=== PATIENT | male | born 1960 | race Caucasian/White ===

== ENCOUNTER 2017-06-21 20:52 | Emergency (ER) | payer MEDICARE, MEDICAID, SELFPAY | END 2017-06-21 21:49 | disposition home or self-care (01) | PROVIDERS: Emergency Provider Emergency Medicine; Visit Provider Emergency Medicine | DX: R07.9 Chest pain, unspecified (principal); F10.120 Alcohol abuse with intoxication, uncomplicated; Y90.6 Blood alcohol level of 120-199 mg/100 ml; F17.210 Nicotine dependence, cigarettes, uncomplicated; Z90.49 Acquired absence of other specified parts of digestive tract; Z79.891 Long term (current) use of opiate analgesic; Z79.899 Other long term (current) drug therapy | CPT/HCPCS: 71010; 80053; 80185; 82550; 82553; 84484; 85025; 93005; 93041; 99283 ==

== ENCOUNTER 2024-12-27 19:29 | Emergency (ER) | payer MEDICARE, MEDICAID, SELFPAY ==
--- OUTSIDE RECORDS SUMMARY | 2024-11-03 09:45 | XMS_ITS ---
Author Organization [facility] [place] Address [address] [facility] [place] [address] Care Team Providers Care Merchandise Flow Team Leader Name Role Phone ZA CORDOBA Primary Care Provider [phone] Julieta LLAMAS, Za Unavailable Unavailable Nicole Jimenez Unavailable [phone] REASON FOR VISIT 1 month f/u Encounters Encounter Location Date Provider Diagnosis [facility] [address] [place] [address] 11/03/2024 Nicole Jimenez Plan Of Treatment No Information Progress Notes * Francisco JONES RDOB:[birth year] (64 yo M)Acc No.[id number]:11/03/2024 Progress Notes Patient: Ashkan NICOLASshelia Montelongo Appointment Provider: Jillian Jimenez APRN, CNP :1960 A ge:64 Y S ex:Male Date:11/03/2024 Address:[address], [place], [place] Pcp:ZA CORDOBA Subjective: * Chief Complaints: * 1 . 1 month f/u. * Medical History: Objective: * Vitals: Assessment: Plan: * Treatment: * * Electronic signature of Damon Schumacher APRN on 12/27/2024 at 07:44 PM EDT Sign off status: Pending * Appointment Provider: Jillian Jimenez APRN, CNP Date: 0 11/03/2024 Generated for Printing/Faxing/eTransmitting on: 0 12/27/2024 07:44 PM EDT
--- OUTSIDE RECORDS SUMMARY | 2024-11-10 07:30 | XMS_ITS ---
Author Organization [facility] [place] Address [address] [place] [address] Care Team Providers Care Real Estate Portfolio Manager Name Role Phone ZA CORDOBA Primary Care Provider Julieta LLAMAS, Za Unavailable Unavailable Gertrudis Mccoy [phone] REASON FOR VISIT medicare wellness Encounters Encounter Location Date Provider Diagnosis [facility] [place] [address] [facility] [address] [place] [address] 11/10/2024 Gertrudis Mccoy Plan Of Treatment No Information Progress Notes * Francisco JONES RDOB:[birth year] (64 yo M)Acc No.[id number]:11/10/2024 Progress Note Patient: Ashkan NICOLASshelia Montelongo Provider: Jillian Mccoy :1960 A ge:64 Y S ex:Male Date:11/10/2024 Address:[address], [place], [place] Pcp:ZA CORDOBA Subjective: * Chief Complaints: * 1 . Medicare wellness. * Medical History: Objective: * Vitals: Assessment: Plan: * Treatment: * * Electronic signature of Everette Mccoy PAC on 12/27/2024 at 07:45 PM EDT Sign off status: Pending * Provider: Jillian Mccoy Date: 0 11/10/2024 Generated for Glenn curiel/Karlee/eTgilbertosmitting on: 0 12/27/2024 07:45 PM EDT
[2024-12-27] VITALS (7 sets, daily range): BP systolic 97–123; BP diastolic 58–93; PULSE 60–69; RESP 12–20; TEMP 36.3–36.4; O2SAT 96–100; BMI 24.3
--- NOTE | 2024-12-27 19:30 | ECG_ITS ---
APPROVED REPORT Exam: Resting ECG HR:65 bpm ECG Measurements Heart Rate 65 AXES NC 167 P 69 QRSd 107 QRS -9 QT 442 T 52 QTc 453 Conclusion SINUS RHYTHM NONSPECIFIC ST & T-WAVE ABNORMALITY BORDERLINE ECG INTERPRETATION BASED ON A DEFAULT AGE OF 39 YEARS UNCONFIRMED REPORT Electronically signed by : CHECO FRANCIS, 12/28/2024 06:14:10
--- NOTE | 2024-12-27 19:33 | HMH.EDGENADL ---
Discharge Plan Disposition Patient Disposition: Home, Self-Care Condition: Good Referrals Follow up/Referrals: Marlon Rendon [Primary Care Provider, Medical] - See instructions Activity Restrictions/Add. Instructions Additional Instructions/Restrictions: You were evaluated in the emergency department today for chest pain. Your second troponin was pending but since you are elected to leave before it resulted, please note that ypu should follow-up very closely with primary care as well as with cardiology given your chest pain. Return to the emergency department for new or worsening symptoms. Your lung mass was noted on CT scan. I understand that you follow at [facility] for this, so please keep close follow-up with them. Clinical Impressions Clinical Impression: Hypokalemia, Paresthesia Chest pain Qualifiers: Chest pain type: unspecified Qualified Code(s): R07.9 - Chest pain, unspecified Alcohol intoxication Qualifiers: Complication of substance-induced condition: uncomplicated Qualified Code(s): F10.920 - Alcohol use, unspecified with intoxication, uncomplicated Instructions Patient Instructions: DI for Atypical Chest Pain Print Language Print Language: Lao Discharge ED Provider: Edwige Leyva General Adult HPI <TWAN Hernandez - Last Filed: 12/27/24 22:14> General Chief complaint: Chest Pain Stated complaint: chest pain, numb arm Time Seen by Provider: 12/27/24 19:33 History of Present Illness HPI narrative: Patient presents for evaluation of chest pain. Patient reports that approximately an hour prior to presentation he had acute onset of bilateral upper extremity numbness that then spread to chest pain. Patient reports he has a history of cardiovascular disease and took a nitroglycerin without relief. Patient is somewhat evasive about the circumstances around today. He reports that [place] in [place] chair outside of his vehicle. His home address is in [facility] and we have no record of the patient previously. Patient denies drug use and reports that he drinks wine not very often . Patient denies shortness of breath fever chills hemoptysis hematochezia melena nausea vomiting or diarrhea. He reports no focal neurologic deficits and still retains full range of motion of his extremities. There are no aggravating or relieving factors. Related Data Allergies Allergy/AdvReac Type Severity Reaction Status Date / Time No Known Drug Allergies Allergy Unknown Other Verified 12/27/24 20:26 PFS <TWAN Hernandez - Last Filed: 12/27/24 22:14> [facility] Disclaimer: The information contained in this section may have been updated after the patient was seen, as this information can be updated by other users. Social History (Updated 12/27/24 @ 22:14 by TWAN Hernandez) Smoking Status: Current every day smoker alcohol intake: current current occupational status: unemployed Travel in the last 8 weeks?: None Have you lived/traveled outside US in past 30 days?: No Contact w/someone who lives/traveled outside US past 30 days?: No Exposure to someone with infectious disease in past 14 days?: No Do you have a fever (greater than 100.4 F or 38 C)?: No Have you tested positive for COVID-19?: No Exposed to someone with COVID-19 in past 14 days?: No Do you have a sore throat?: No Do you have a cough?: No Do you have any weakness?: No Do you have any diarrhea?: No Are you experiencing any unusual bleeding?: No Do you have any muscle aches/pain?: No Do you have any abdominal pain?: No Are you experiencing loss of taste or smell?: No <TWAN Hernandez - Last Filed: 12/27/24 22:14> ROS Obtained: Yes Systems reviewed as appropriate & no additional complaints except as documented Physical Exam <TWAN Hernandez - Last Filed: 12/27/24 22:14> General General appearance: alert and in no apparent distress Respiratory Respiratory exam: Present normal lung sounds bilaterally Cardiovascular Cardiovascular exam: Present regular rate Neurological Exam Neurological exam: Present alert and oriented X3 Medical Decision Making <TWAN Hernandez - Last Filed: 12/27/24 22:14> Medical Records Medical records reviewed: Yes I reviewed the patient's medical records. Screening: Per USPSTF and CDC recommendations, given the prevalence of disease in our region, it is our hospital?s policy to screen for HIV and viral Hepatitis for all patients aged 18 and over and those with ongoing risk factors. Jonathan Inquiry Pt receiving controlled substance: No Vital Signs: 12/27/24 19:31 12/27/24 20:01 12/27/24 20:21 Temperature 97.3 F L Temperature Source Oral Pulse Rate 60 68 Pulse Rate [Right Brachial] 65 Respiratory Rate 20 15 Blood Pressure 107/65 L Blood Pressure [Right Arm] 97/58 L Blood Pressure Mean Blood Pressure Mean [Right Arm] 71 Blood Pressure Source [Right Arm] Automatic Cuff Blood Pressure Position Blood Pressure Position [Right Arm] Supine 02 Sat by Pulse Oximetry 96 100 Oxygen Delivery Method Room Air 12/27/24 21:02 12/27/24 22:00 12/27/24 23:31 Temperature 97.6 F Temperature Source Pulse Rate 61 64 Pulse Rate [Right Brachial] Respiratory Rate 12 15 Blood Pressure 119/62 121/80 123/93 H Blood Pressure [Right Arm] Blood Pressure Mean 96 101 Blood Pressure Mean [Right Arm] Blood Pressure Source [Right Arm] Blood Pressure Position Blood Pressure Position [Right Arm] 02 Sat by Pulse Oximetry 97 98 Oxygen Delivery Method 12/27/24 23:48 Temperature 97.6 F Temperature Source Oral Pulse Rate 69 Pulse Rate [Right Brachial] Respiratory Rate 16 Blood Pressure 123/93 H Blood Pressure [Right Arm] Blood Pressure Mean Blood Pressure Mean [Right Arm] Blood Pressure Source [Right Arm] Blood Pressure Position Sitting Blood Pressure Position [Right Arm] 02 Sat by Pulse Oximetry Oxygen Delivery Method Room Air Lab Data Lab results reviewed: Yes I reviewed the patient's lab results. Lab Results 12/27/24 19:37: WBC 11.3 H, RBC 4.13 L, Hgb 11.3 L, Hct 33.9 L, MCV 82.1, MCH 27.4, MCHC 33.3, RDW 14.5, Plt Count 296, MPV 10.1, Neut % (Auto) 63.5, Lymph % (Auto) 21.6, [place] % (Auto) 8.3, Eos % (Auto) 5.2, Baso % (Auto) 1.0, Neut # (Auto) 7.2, Lymph # (Auto) 2.5, [place] # (Auto) 0.9, Eos # (Auto) 0.6 H, Baso # (Auto) 0.1, ESR 20, PT 10.8, INR 0.97, VBG pH 7.43 H, VBG pCO2 32.4 L, VBG pO2 123.8 H, VBG HCO3 20.9 L, VBG Total CO2 21.9 L, VBG O2 Saturation 98.0 H, VBG Base Excess -3.4 L, VBG Lactic Acid 3.3 H, Sodium 136, Potassium 3.0 L, Chloride 101, Carbon Dioxide 22, Anion Gap 16.0 H, BUN 16, Creatinine 1.40 H, Estimated Creat Clear 64, Estimated GFR 51 L, Est GFR ( Amer) 62, Glucose 93, Calcium 9.0, Magnesium 2.0, Total Bilirubin 0.5, AST 33, ALT 17, Alkaline Phosphatase 107, Troponin I < 0.01, C-Reactive Protein 2.8, Total Protein 6.8, Albumin 4.0, Globulin 2.8, Albumin/Globulin Ratio 1.4, Lipase 109, Procalcitonin 0.063, Plasma/Serum Alcohol 149 H, HCV Ab MIKE w/Rflx PCR Qn Negative, HIV Ag/Ab Combo Qual Negative 12/27/24 21:05: Urine Color Yellow, Urine Appearance Sl cloudy, Urine pH 6.0, Ur Specific [place] <= 1.005, Urine Protein Negative, Urine Glucose (UA) Negative, Urine Ketones Negative, Urine Blood Negative, Urine Nitrate Negative, Urine Bilirubin Negative, Urine Urobilinogen 0.2, Ur Leukocyte Esterase Negative, Urine RBC 3-5, Urine WBC 3-5, Ur Squamous Epith Cells 5-10, Urine Bacteria 1+, Urine Mucus 1+, Urine Opiates Screen Negative, Urine Methadone Screen Negative, Ur Barbituates Screen Negative, Ur Phencyclidine Scrn Negative, Ur Amphetamines Screen Negative, U Benzodiazepines Scrn Negative, Urine Cocaine Screen Negative, U Marijuana (THC) Screen Negative 12/27/24 22:45: Troponin I < 0.01 12/27/24 19:37 12/27/24 19:37 Orders (Tests/Meds): ED MEDICATIONS Discontinued Medications Generic Name Dose Route Start Last Admin Trade Name Freq PRN Reason Stop Dose Admin Acetaminophen 1,000 mg 12/27/24 19:34 12/27/24 19:46 Acetaminophen 500mg Tab PO 12/27/24 19:35 1,000 mg ONCE ONE Administration Sodium Chloride 1,000 mls @ 999 mls/hr 12/27/24 19:34 12/27/24 19:45 Sod Chlor 0.9% 1000ml Bag IV 12/27/24 20:34 999 mls/hr .Q1H1M ONE Administration Iopamidol 70 ml 12/27/24 20:36 12/27/24 20:37 Iopamidol-370 (76%);100ml Bottle IV 12/27/24 20:37 70 ml ONCE ONE Administration Ondansetron HCl 4 mg 12/27/24 19:34 12/27/24 19:45 Ondansetron 4mg/2ml Vial IV 12/27/24 19:35 4 mg ONCE ONE Administration Potassium Chloride 60 meq 12/27/24 20:27 12/27/24 20:37 Potassium Chloride 20meq Tab PO 12/27/24 20:28 60 meq ONCE ONE Administration Sodium Chloride 50 ml 12/27/24 20:36 12/27/24 20:37 0.9 % Sodium Chloride 50 Ml Vial IV 12/27/24 20:37 50 ml ONCE ONE Administration Sodium Chloride 10 ml 12/27/24 20:36 12/27/24 20:37 Sodium Chloride 0.9% 10ml Syr (Rad Only) IV 12/27/24 20:37 10 ml ONCE ONE Administration ORDERS Category Date Time Status CTA Chest [CT angio chest PE protocol] Stat Cat Scan 12/27/24 20:03 Completed Blood alcohol [Ethyl Alcohol] Stat Lab 12/27/24 19:37 Completed CBC w/Auto Diff [Complete Blood Count Auto Diff] Stat Lab 12/27/24 19:37 Completed CMP [Comprehensive Metabolic Panel] Stat Lab 12/27/24 19:37 Completed CRP [C-Reactive Protein] Stat Lab 12/27/24 19:37 Completed ESR [Erythrocyte Sedimentation Rate] Stat Lab 12/27/24 19:37 Completed HIV Combo Routine Lab 12/27/24 19:37 Completed Hepatitis C Ab Qual. W/ RFX Routine Lab 12/27/24 19:37 Completed INR [Prothrombin Time INR] Stat Lab 12/27/24 19:37 Completed Lipase Stat Lab 12/27/24 19:37 Completed Magnesium Stat Lab 12/27/24 19:37 Completed Procalcitonin Stat Lab 12/27/24 19:37 Completed Trop I [Troponin I] Stat Lab 12/27/24 19:37 Completed Troponin I Q3H Lab 12/27/24 22:45 Completed Troponin I Q3H Lab 12/28/24 01:45 Ordered UA [Urinalysis and Microscopic] Stat Lab 12/27/24 21:05 Completed UDS [Drug Screen,Urine] Stat Lab 12/27/24 21:05 Completed VBG [Venous Blood Gas] Stat RT 12/27/24 19:37 Completed HEART Score History (anamnesis): Slightly suspicious ECG: Non-specific disturbance Age: 45-65 years Risk factors: Atherosclerosis history Troponin: </= normal limit HEART Score: 4 Medical Decision Narrative: In summary patient is a 64-year-old male who presents to the emergency department for evaluation of chest pain and paresthesias. Patient is initially hypotensive with a blood pressure 97/58 however he did take a nitro sublingually, pulse of 65 with sinus rhythm on the bedside monitor breathing 20 times a minute satting at 98% on room air upon arrival, afebrile at 97.3. Physical exam is remarkable for a much older than stated age appearing 64-year-old male who does not appear to be in acute distress. Pupils equal round reactive to light however he has significant conjunctival injection. Breath sounds clear and equal bilaterally to the bases with adventitious sounds. There is no reproducible chest pain on palpation. Breath sounds clear no bilaterally to the bases that adventitious sounds. Cardiovascular S1-S2 regular rate and rhythm without murmurs gallops rubs or thrills. Abdomen soft nontender no rebound no guarding no rigidity. Bowel sounds normal active. [place] Coma Score 15. Cranial nerves II through XII intact respiratory exam. Patient has full range of motion in all 4 extremities with no focal neurologic deficits.. Differential diagnosis includes ACS versus dissection versus PE versus intoxication versus electrolyte abnormality versus pneumonia etc. Initial workup will be conducted with hematologic labs twelve-lead EKG CT dissection protocol. Initial interventions include crystalloid bolus Toradol and Zofran. Initial workup reviewed by me and his hematologic labs significant for white count of 11.3 hemoglobin hematocrit 11.3 and 33.9 respectively with no neutrophilic shift, ESR is 20, VBG shows pH 7.43 pCO2 32.4 VBG lactic acid of 3.3, potassium critically low at 3 gap is 16 creatinine 1.4 GFR is 51 initial troponin is less than 0.01 lipase 109 procalcitonin 0.063 urinalysis shows 5-10 epithelial cells and 1+ bacteria the patient has no dysuria symptoms so we will assume contamination. Serum alcohol was 149 drug screen was negative for all agents. Have ordered potassium repletion. Given the close onset of his symptoms we will await second troponin before disposition. Care handed off to Dr. Leyva at 2200 hrs. <Edwige Leyva, DO - Last Filed: 12/27/24 23:50> Vital Signs: 12/27/24 19:31 12/27/24 20:01 12/27/24 20:21 Temperature 97.3 F L Temperature Source Oral Pulse Rate 60 68 Pulse Rate [Right Brachial] 65 Respiratory Rate 20 15 Blood Pressure 107/65 L Blood Pressure [Right Arm] 97/58 L Blood Pressure Mean Blood Pressure Mean [Right Arm] 71 Blood Pressure Source [Right Arm] Automatic Cuff Blood Pressure Position Blood Pressure Position [Right Arm] Supine 02 Sat by Pulse Oximetry 96 100 Oxygen Delivery Method Room Air 12/27/24 21:02 12/27/24 22:00 12/27/24 23:31 Temperature 97.6 F Temperature Source Pulse Rate 61 64 Pulse Rate [Right Brachial] Respiratory Rate 12 15 Blood Pressure 119/62 121/80 123/93 H Blood Pressure [Right Arm] Blood Pressure Mean 96 101 Blood Pressure Mean [Right Arm] Blood Pressure Source [Right Arm] Blood Pressure Position Blood Pressure Position [Right Arm] 02 Sat by Pulse Oximetry 97 98 Oxygen Delivery Method 12/27/24 23:48 Temperature 97.6 F Temperature Source Oral Pulse Rate 69 Pulse Rate [Right Brachial] Respiratory Rate 16 Blood Pressure 123/93 H Blood Pressure [Right Arm] Blood Pressure Mean Blood Pressure Mean [Right Arm] Blood Pressure Source [Right Arm] Blood Pressure Position Sitting Blood Pressure Position [Right Arm] 02 Sat by Pulse Oximetry Oxygen Delivery Method Room Air Lab Data Lab Results 12/27/24 19:37: WBC 11.3 H, RBC 4.13 L, Hgb 11.3 L, Hct 33.9 L, MCV 82.1, MCH 27.4, MCHC 33.3, RDW 14.5, Plt Count 296, MPV 10.1, Neut % (Auto) 63.5, Lymph % (Auto) 21.6, [place] % (Auto) 8.3, Eos % (Auto) 5.2, Baso % (Auto) 1.0, Neut # (Auto) 7.2, Lymph # (Auto) 2.5, [place] # (Auto) 0.9, Eos # (Auto) 0.6 H, Baso # (Auto) 0.1, ESR 20, PT 10.8, INR 0.97, VBG pH 7.43 H, VBG pCO2 32.4 L, VBG pO2 123.8 H, VBG HCO3 20.9 L, VBG Total CO2 21.9 L, VBG O2 Saturation 98.0 H, VBG Base Excess -3.4 L, VBG Lactic Acid 3.3 H, Sodium 136, Potassium 3.0 L, Chloride 101, Carbon Dioxide 22, Anion Gap 16.0 H, BUN 16, Creatinine 1.40 H, Estimated Creat Clear 64, Estimated GFR 51 L, Est GFR ( Amer) 62, Glucose 93, Calcium 9.0, Magnesium 2.0, Total Bilirubin 0.5, AST 33, ALT 17, Alkaline Phosphatase 107, Troponin I < 0.01, C-Reactive Protein 2.8, Total Protein 6.8, Albumin 4.0, Globulin 2.8, Albumin/Globulin Ratio 1.4, Lipase 109, Procalcitonin 0.063, Plasma/Serum Alcohol 149 H, HCV Ab MIEK w/Rflx PCR Qn Negative, HIV Ag/Ab Combo Qual Negative 12/27/24 21:05: Urine Color Yellow, Urine Appearance Sl cloudy, Urine pH 6.0, Ur Specific [place] <= 1.005, Urine Protein Negative, Urine Glucose (UA) Negative, Urine Ketones Negative, Urine Blood Negative, Urine Nitrate Negative, Urine Bilirubin Negative, Urine Urobilinogen 0.2, Ur Leukocyte Esterase Negative, Urine RBC 3-5, Urine WBC 3-5, Ur Squamous Epith Cells 5-10, Urine Bacteria 1+, Urine Mucus 1+, Urine Opiates Screen Negative, Urine Methadone Screen Negative, Ur Barbituates Screen Negative, Ur Phencyclidine Scrn Negative, Ur Amphetamines Screen Negative, U Benzodiazepines Scrn Negative, Urine Cocaine Screen Negative, U Marijuana (THC) Screen Negative 12/27/24 22:45: Troponin I < 0.01 Orders (Tests/Meds): ED MEDICATIONS Discontinued Medications Generic Name Dose Route Start Last Admin Trade Name Mansoorq PRN Reason Stop Dose Admin Acetaminophen 1,000 mg 12/27/24 19:34 12/27/24 19:46 Acetaminophen 500mg Tab PO 12/27/24 19:35 1,000 mg ONCE ONE Administration Sodium Chloride 1,000 mls @ 999 mls/hr 12/27/24 19:34 12/27/24 19:45 Sod Chlor 0.9% 1000ml Bag IV 12/27/24 20:34 999 mls/hr .Q1H1M ONE Administration Iopamidol 70 ml 12/27/24 20:36 12/27/24 20:37 Iopamidol-370 (76%);100ml Bottle IV 12/27/24 20:37 70 ml ONCE ONE Administration Ondansetron HCl 4 mg 12/27/24 19:34 12/27/24 19:45 Ondansetron 4mg/2ml Vial IV 12/27/24 19:35 4 mg ONCE ONE Administration Potassium Chloride 60 meq 12/27/24 20:27 12/27/24 20:37 Potassium Chloride 20meq Tab PO 12/27/24 20:28 60 meq ONCE ONE Administration Sodium Chloride 50 ml 12/27/24 20:36 12/27/24 20:37 0.9 % Sodium Chloride 50 Ml Vial IV 12/27/24 20:37 50 ml ONCE ONE Administration Sodium Chloride 10 ml 12/27/24 20:36 12/27/24 20:37 Sodium Chloride 0.9% 10ml Syr (Rad Only) IV 12/27/24 20:37 10 ml ONCE ONE Administration ORDERS Category Date Time Status CTA Chest [CT angio chest PE protocol] Stat Cat Scan 12/27/24 20:03 Completed Blood alcohol [Ethyl Alcohol] Stat Lab 12/27/24 19:37 Completed CBC w/Auto Diff [Complete Blood Count Auto Diff] Stat Lab 12/27/24 19:37 Completed CMP [Comprehensive Metabolic Panel] Stat Lab 12/27/24 19:37 Completed CRP [C-Reactive Protein] Stat Lab 12/27/24 19:37 Completed ESR [Erythrocyte Sedimentation Rate] Stat Lab 12/27/24 19:37 Completed HIV Combo Routine Lab 12/27/24 19:37 Completed Hepatitis C Ab Qual. W/ RFX Routine Lab 12/27/24 19:37 Completed INR [Prothrombin Time INR] Stat Lab 12/27/24 19:37 Completed Lipase Stat Lab 12/27/24 19:37 Completed Magnesium Stat Lab 12/27/24 19:37 Completed Procalcitonin Stat Lab 12/27/24 19:37 Completed Trop I [Troponin I] Stat Lab 12/27/24 19:37 Completed Troponin I Q3H Lab 12/27/24 22:45 Completed Troponin I Q3H Lab 12/28/24 01:45 Ordered UA [Urinalysis and Microscopic] Stat Lab 12/27/24 21:05 Completed UDS [Drug Screen,Urine] Stat Lab 12/27/24 21:05 Completed VBG [Venous Blood Gas] Stat RT 12/27/24 19:37 Completed ECG Data Tracing #1: I reviewed this ECG and interpreted as documented below: Normal sinus rhythm with a ventricular rate of [address]/T wave changes without acute STEMI. Normal intervals ECG initial impression date: 12/27/24 ECG initial impression time: 19:32 HEART Score HEART Score: 4 Medical Decision Narrative: In summary patient is a 64-year-old male who presents to the emergency department for evaluation of chest pain and paresthesias. Patient is initially hypotensive with a blood pressure 97/58 however he did take a nitro sublingually, pulse of 65 with sinus rhythm on the bedside monitor breathing 20 times a minute satting at 98% on room air upon arrival, afebrile at 97.3. Physical exam is remarkable for a much older than stated age appearing 64-year-old male who does not appear to be in acute distress. Pupils equal round reactive to light however he has significant conjunctival injection. Breath sounds clear and equal bilaterally to the bases with adventitious sounds. There is no reproducible chest pain on palpation. Breath sounds clear no bilaterally to the bases that adventitious sounds. Cardiovascular S1-S2 regular rate and rhythm without murmurs gallops rubs or thrills. Abdomen soft nontender no rebound no guarding no rigidity. Bowel sounds normal active. [place] Coma Score 15. Cranial nerves II through XII intact respiratory exam. Patient has full range of motion in all 4 extremities with no focal neurologic deficits.. Differential diagnosis includes ACS versus dissection versus PE versus intoxication versus electrolyte abnormality versus pneumonia etc. Initial workup will be conducted with hematologic labs twelve-lead EKG CT dissection protocol. Initial interventions include crystalloid bolus Toradol and Zofran. Initial workup reviewed by me and his hematologic labs significant for white count of 11.3 hemoglobin hematocrit 11.3 and 33.9 respectively with no neutrophilic shift, ESR is 20, VBG shows pH 7.43 pCO2 32.4 VBG lactic acid of 3.3, potassium critically low at 3 gap is 16 creatinine 1.4 GFR is 51 initial troponin is less than 0.01 lipase 109 procalcitonin 0.063 urinalysis shows 5-10 epithelial cells and 1+ bacteria the patient has no dysuria symptoms so we will assume contamination. Serum alcohol was 149 drug screen was negative for all agents. Have ordered potassium repletion. Given the close onset of his symptoms we will await second troponin before disposition. Care handed off to Dr. Leyva at 2200 hrs. DO Gordon: I was consulted by the [place], and we discussed the complexity of the problems being addressed. I approved the treatment and management plan for this patient's care in the emergency department, thus performing a substantive portion of the medical decision making. Second opponent resulted and is also negative. Patient was discharged home with instructions for close follow-up with PCP and strict return precautions Edwige Leyva DO Critical Care <TWAN Hernandez - Last Filed: 12/27/24 22:14> Critical Care Time Critical Care Time: Yes Attestation: On 12/27/24, the high probability of a clinically significant, sudden or life threatening deterioration of the following system(s) required my full and direct attention, intervention and personal management. The time I documented below is in addition to time spent performing reported procedures but includes the following listed in this critical care notation. Total Time Total Critical Care Time: 30
--- NOTE | 2024-12-27 19:34 | PC.NURSE ---
Report given to Rehan RN Pt resting quietly in bed Skin pink warm and dry Resp full and easy Speech clear and appropriate Port noted in right chest. Pain 8 on 1-10 scale Pt in SR per continuous heart monitor
--- OUTSIDE RECORDS SUMMARY | 2024-12-27 19:44 | XMS_ITS | Referral Summary ---
Author Organization [employer] Address [address] [place] [address] Care Team Providers Care School Speech Therapist Name Role Phone Marlon Rendon MD Primary Care Provider [phone] Encounters Date Type Department Care Team Description 10/04/2024 Travel 10/04/2024 8:59 PM EDT - 10/04/2024 10:47 PM EDT Emergency [facility] Emergency Department [address] [place] [address] Vnice Bennett MD Atypical chest pain (Primary Dx) Discharge Disposition: Home or Self Care from Last 3 Months Allergies No known active allergies Medications No known medications Social History Tobacco Use Types Packs/Day Years Used Date Smoking Tobacco: Every Day Cigarettes Smokeless Tobacco: Never Tobacco Cessation:Ready to Q uit: Not Asked; Counseling Given: Not Answered Alcohol Use Standard Drinks/Week Comments Not Currently 0 (1 standard drink = 0.6 oz pur e alcohol) Interpersonal Safety Answer Date Record ed Family or friends hurt you Not on file 07/22 Family or friends insult you Not on file Family or friends threaten you Not on file 0 07/22/2023 Family or friends scream or curse at you Not on file 07/22/2023 Housing Stability Answer Date Recorded Living situation today Not on file Living situation problems Not on file 2023 Employment Answer Date Recorded Help finding and keeping a job Not on file 0 07/22/2023 Family and Community Support Answer Oliver e Recorded Help with Day to Day Activities Not on file 07/22/2023 Feeling Lonely or Isolated Not on file 07/22 Educational Attainment Answer Date Tono rded Speak language other than Maldivian at home Not on file 07/22/2023 Want help with school or training Not on file 07/22/2023 Depression Answer Date Recorded PHQ-2 Risk Not on file 07/22/2023 Disabilities Answer Date Recorded Difficulty concentrating Not on file 024 Difficulty doing errands alone Not on file 0 07/22/2023 Substance Use Answer Date Recorded Used prescription meds for non-medical reasons N ot on file 07/22/2023 Used illegal drugs past 12 months Not on file 07/22/2023 Sex and Gender Information Value Date Recorded Sex Assigned at Not on file Legal Sex Male 5:16 PM CDT Gender Identity Not on file Sexual Orientation Not on file Last Filed Vital Signs Vital Sign Reading Time Taken Comments Blood Pressure 95/56 10/04/2024 10:30 PM EDT Pulse 62 10/04/2024 10:30 PM EDT Temperature 36.1 C (97 F) 09/26/2022 2:17 PM EDT Respiratory Rate 42 10/04/2024 10:00 PM EDT Oxygen Saturation 93% 10/04/2024 10:30 PM EDT Inhaled Oxygen Concentration - - Weight 97.5 kg (215 lb) 09/26/2022 2:17 PM EDT Height 188 cm (6' 2 ) 09/26/2022 2:17 PM EDT Body Mass Index 27.6 09/26/2022 2:17 PM EDT Plan of Treatment Not on file Procedures Procedure Name Priority Date/Time Associated Diagnosis Comments XR CHEST 1 VIEW PORTABLE / BEDSIDE STAT 10/04/2024 9:16 PM EDT HIGH SENSITIVITY TROPONIN I STAT 10/04/2024 9:07 PM EDT PROBNP STAT 10/04/2024 9:07 PM EDT COMPREHENSIVE METABOLIC PANEL STAT 10/04/2024 9:07 PM EDT CBC W/ AUTO DIFF STAT 10/04/2024 9:07 PM EDT FS_MODEL_IP_ECG 12-LEAD STAT 10/04/2024 9:03 PM EDT from Last 3 Months Results * XR chest 1 view portable / bedside (10/04/2024 9:16 PM EDT) Anatomical Region Laterality Modality X-Ray 10/05/2024 8:29 AM EDT Impressions 10/05/2024 11:23 AM EDT Right upper lung ill-defined opacity, malignancy or pneumonia. Correlate clinically. Consider CT chest with contrast for further evaluation if not already performed. Images personally reviewed, interpreted and dictated by VARINDER Lerner. Narrative 10/05/2024 11:23 AM EDT CLINICAL INDICATION: Chest pain. Current smoker. EXAMINATION TECHNIQUE: XR CHEST 1 VIEW PORTABLE / BEDSIDE COMPARISON: None. FINDINGS: Right chest wall internal jugular approach Port-A-Cath tip in the SVC. Heart is normal in size. Right upper lung ill-defined opacity. Mild bibasilar atelectasis. No pneumothorax. No pleural effusion. No acute osseous or soft tissue abnormality. Procedure Note Jose J Castro MD - 10/05/2024 CLINICAL INDICATION: Chest pain. Current smoker. EXAMINATION TECHNIQUE: XR CHEST 1 VIEW PORTABLE / BEDSIDE COMPARISON: None. FINDINGS: Right chest wall internal jugular approach Port-A-Cath tip in the SVC. Heart is normal in size. Right upper lung ill-defined opacity. Mild bibasilar atelectasis. No pneumothorax. No pleural effusion. No acute osseous or soft tissue abnormality. IMPRESSION: Right upper lung ill-defined opacity, malignancy or pneumonia. Correlate clinically. Consider CT chest with contrast for further evaluation if not already performed. Images personally reviewed, interpreted and dictated by VARINDER Lerner. Vince Bennett MD IMG DIAGNOSTIC IMAGING ORDERABL ES Final Result * (ABNORMAL) CBC with Auto Diff (10/04/2024 9:07 PM EDT) WBC 14.6(H) 4.8 - 10.8 K/ L 10/04/2024 9:12 PM EDT [facility] RBC 4.79 3.80 - 5.20 M/ L 10/04/2024 9:12 PM EDT [facility] Hemoglobin 13.2 12.8 - 17.4 GM/DL 10/04/2024 9:12 PM EDT [facility] Hematocrit 39.5 39.0 - 51.0 % 10/04/2024 9:12 PM EDT [facility] MCV 83 81 - 101 fL 10/04/2024 9:12 PM EDT [facility] MCH 27.6 27.0 - 34.0 pg 10/04/2024 9:12 PM EDT [facility] MCHC 33.4 32.0 - 36.0 GM/DL 10/04/2024 9:12 PM EDT [facility] RDW 15.9(H) 11.5 - 14.5 % 10/04/2024 9:12 PM EDT [facility] Platelets 277 150 - 400 K/CU MM 10/04/2024 9:12 PM EDT [facility] MPV 10.7 9.4 - 12.4 fL 10/04/2024 9:12 PM EDT [facility] Nucleated Red Blood Cell 0.0 0 - 0.2 % 10/04/2024 9:12 PM EDT [facility] % Neutros 63 37 - 80 % 10/04/2024 9:12 PM EDT [facility] % Lymphs 26 10 - 50 % 10/04/2024 9:12 PM EDT [facility] % Monos 8 5 - 13 % 10/04/2024 9:12 PM EDT [facility] % Eos 2 0 - 7 % 10/04/2024 9:12 PM EDT [facility] % Baso 1 0 - 3 % 10/04/2024 9:12 PM EDT [facility] NRBC Absolute <0.01 0 - 0.012 K/ul 10/04/2024 9:12 PM EDT [facility] # Neutros 9.14(H) 2.00 - 6.90 K/ L 10/04/2024 9:12 PM EDT [facility] # Lymphs 3.82(H) 0.60 - 3.40 K/ L 10/04/2024 9:12 PM EDT [facility] # Monos 1.15(H) 0.00 - 0.90 K/ L 10/04/2024 9:12 PM EDT [facility] # Eos 0.28 0.00 - 0.70 K/ L 10/04/2024 9:12 PM EDT [facility] # Baso 0.10 0.00 - 0.20 K/ L 10/04/2024 9:12 PM EDT [facility] Immature Granulocytes-Re lative 0.50 % 10/04/2024 9:12 PM EDT [facility] # IG 0.07(H) 0.00 - 0.00 K/uL 10/04/2024 9:12 PM EDT [facility] Blood Venipuncture / Unknown 10/04/2024 9:07 PM EDT 10/04/2024 9:07 PM EDT Narrative [facility] - 10/04/2024 9:12 PM EDT When CBC w/ Auto Diff is ordered the lab will add a Manual Differential as a quality check at no additional charge if: Lymphocytes greater than seventy five percent with normal or increased WBC Monocytes greater than Fifteen percent Basophil greater than four percent Bands >10% or several immature myeloids are seen on scan Blast? Flag noted Atypical Lymph flag noted us Vince Bennett MD LAB BLOOD ORDERABLES Final Resu lt [facility] [address] [phone] * High Sensitivity Troponin I (10/04/2024 9:07 PM EDT) Troponin I High Sensitivity (pg/mL) 14.9 4 - 60.3 pg/mL 10/04/2024 9:56 PM EDT [facility] Comment: Troponin Result (pg/mL) *Interpretation 4-60.3 *Normal; less than 99th percentile of normal range >60.3 *Abnormal; greater than 99th percentile of normal range Biotin specimen concentration >300 ng/mL may lead to falsely depressed results for patient samples. Do not use this test for renal dysfunction patients (eGFR <60) unless it is confirmed that the patient is not taking Biotin. Blood Venipuncture / Unknown 10/04/2024 9:07 PM EDT 10/04/2024 9:07 PM EDT Vince Bennett MD LAB BLOOD ORDERABLES Final Resu lt Performing Organization Address [facility]/ZIP Co de Phone Number [facility] [address] [place] [address] * (ABNORMAL) PROBNP (10/04/2024 9:07 PM EDT) ProBNP (pg/mL) 1,185(H) 5 - 125 pg/mL 10/04/2024 9:56 PM EDT [facility] Blood Venipuncture / Unknown 10/04/2024 9:07 PM EDT 10/04/2024 9:07 PM EDT Vince Bennett MD LAB BLOOD ORDERABLES Final Resu lt Performing Organization Address [facility] Co de Phone Number [facility] [address] [place] [address] * (ABNORMAL) Comprehensive metabolic panel (10/04/2024 9:07 PM EDT) Sodium 132(L) 136 - 145 meq/L 10/04/2024 9:56 PM EDT [facility] Potassium 3.0(L) 3.5 - 5.1 meq/L 10/04/2024 9:56 PM EDT [facility] Chloride 99 98 - 107 meq/L 10/04/2024 9:56 PM EDT [facility] CO2 23 21 - 32 meq/L 10/04/2024 9:56 PM EDT [facility] Calcium 8.5 8.5 - 10.1 mg/dL 10/04/2024 9:56 PM EDT [facility] Glucose 74 70 - 99 mg/dL 10/04/2024 9:56 PM EDT [facility] BUN 12 7 - 18 mg/dL 10/04/2024 9:56 PM EDT [facility] Creatinine 1.21(H) 0.70 - 1.20 mg/dL 10/04/2024 9:56 PM EDT [facility] BUN/Creatinine 10 10/04/2024 9:56 PM EDT [facility] Albumin 3.2(L) 3.4 - 5.0 g/dL 10/04/2024 9:56 PM EDT [facility] Alkaline Phosphatase 171(H) 46 - 116 U/L 10/04/2024 9:56 PM EDT [facility] ALT 23 12 - 78 U/L 10/04/2024 9:56 PM EDT [facility] AST 20 15 - 37 U/L 10/04/2024 9:56 PM EDT [facility] Total Bilirubin 0.5 0.2 - 1.0 mg/dL 10/04/2024 9:56 PM EDT [facility] Protein, Total 7.6 6.4 - 8.2 gm/dL 10/04/2024 9:56 PM EDT [facility] Anion Gap 13 11 - 22 10/04/2024 9:56 PM T [facility] A/G Ratio 0.7 10/04/2024 9:56 PM EDT [facility] Globulin 4.4 g/dL 10/04/2024 9:56 PM EDT [facility] Osmolality Calc 262.9 mOsm/kg 9:56 PM T [facility] eGFR (mL/min/1.73m2) >60 >=60 mL/min/1.7 3m2 10/04/2024 9:56 PM EDT [facility] Comment:ESTIMATED GFR IS NOT ACCURATE CREATININE CLEARANCE IN PREDICTING GLOMERULAR FILTRATION RATE. ESTIMATED GFR IS NOT APPLICABLE FOR DIALYSIS PATIENTS. Blood Venipuncture / Unknown 10/04/2024 9:07 PM EDT 10/04/2024 9:07 PM EDT us Vince Bennett MD LAB BLOOD ORDERABLES Final Resu lt Performing Organization Address City/[facility] Co de Phone Number [facility] [address] [place] [address], [facility] [phone] * ECG 12 lead (10/04/2024 9:03 PM EDT) VENTRICULAR RATE EKG/MIN 67 BPM GE MUSE ATRIAL RATE (MCT) 67 BPM GE MUSE AR Interval 166 ms GE MUSE QRS-INTERVAL (MSEC) 96 ms GE MUSE QT Interval 432 ms GE MUSE QTC Interval 456 ms GE MUSE P [place] 65 degrees GE MUSE R AXIS (MCT) -10 degrees GE MUSE T Wave [place] 81 degrees GE MUSE [place] Diagnosis Normal sinus rhythm Cannot rule out Anterior infarct , age undetermined Abnormal ECG Confirmed by Jamar FREEMAN, GERALDINE ([id number]) on 10/05/2024 12:25:26 PM GE MUSE 10/04/2024 9:03 PM EDT 10/05/2024 12:25 PM EDT us Vince Bennett MD ECG ORDERABLES Final Result Performing Organization Address City/[facility] Co de Phone Number GE MUSE from Last 3 Months Insurance [facility] DUAL COMPLETE MCR ADV [employer]ET[employer] Care Teams School Speech Therapist Relationship Specialty Start Date End Date Marlon Rendon MD [address] [place] [phone] PCP - General Nephrology 09/26/22
[2024-12-27] MEDS: ONDANSETRON 4MG/2ML VIAL 4 MG IV (19:45)
[2024-12-27] MEDS: 0.9 % SODIUM CHLORIDE 1000ML 1,000 ML 999 ML IV (19:45)
--- OUTSIDE RECORDS SUMMARY | 2024-12-27 19:45 | XMS_ITS | Patient Health Record ---
Author Organization [facility] Address [address] [place] [address] Care Team Providers Care Pantograph Ii Engraver Name Role Phone ZA RENDON Primary Care Provider Za Rendon MD Unavailable Unavailable NICO CARRILLO Unavailable [phone] Gertrudis Mccoy Unavailable [phone] Nicole Jimenez Unavailable [phone] Allergies No Known Allergies Reason For Referral No Information Medications Medication SIG (Take, Route, Frequency, Duration) Notes Start Date End Date Status Ipratropium-Albuterol 0.5-2.5 (3) MG/3ML 3 mL as needed Inhalation every 6 hrs as needed for 30 days 05/11/2023 Active traZODone HCl 50 MG 1 tablet at bedtime as needed Orally Once a day for 30 day(s) Active Cetirizine HCl 10 MG 1 tablet Orally Onc e a day for 90 Active Flonase 50 MCG/ACT 1 spray in each nost ril Nasally Once a day for 30 day(s) undefined 08/02/2017 Active Trelegy Ellipta 100-62.5-25 MCG/ACT 1 puff Inhalation Once a day for 30 days Active QUEtiapine Fumarate 25 MG TAKE ONE TABLE T BY MOUTH AT BEDTIME for 30 Active Metoprolol Succinate ER 25 MG 1 tablet Orally Once a day cardio Active Anoro Ellipta 62.5-25 MCG/INH 1 puff Inhalation Once a day for 90 days Active Atorvastatin Calcium 40 MG 1 tablet Orally Once a day cardio Active Amiodarone HCl 200 MG 1 tablet Orally On ce a day cardio 09/15/2024 Active Valsartan 80 MG 1 tablet Orally Once a day cardio 09/15/2024 Active Albuterol Sulfate HFA 108 (90 Base) MCG/ACT 1 puff as needed Inhalation every 4 hrs for 30 days Active Nicotine 14 MG/24HR 1 patch to skin Transdermal Once a day for 30 days Active Nitroglycerin 0.4 MG 1 tablet under the tongue and allow to dissolve as needed. Take every 5 minutes up to 3 times if chest pain persists Sublingual Three times a day Active Ondansetron HCl 4 MG 1 tablet Orally usha ry 6 hours as needed for 15 days 08/02/2023 Active Nicotine Step 1 21 MG/24HR 1 patch to skin Transdermal Once a day for 15 days Active Aspirin Low Dose 81 MG TAKE ONE TABLET B Y MOUTH DAILY FOR HEART for cardio Active Polyethylene Glycol 3350 17 GM/SCOOP 1 scoop mixed with 8 ounces of fluid Orally Once a day for 30 days 08/30/2023 Active Nicotine 7 MG/24HR 1 patch to skin Transdermal Once a day for 30 days Active Clopidogrel Bisulfate 75 MG 1 tablet Orally Once a day cardio Active Social History Tobacco Use: Social History Observation Description Date Details (start date - stop date) Current Smoker NA - NA Tobacco Control (Standard) Question Answer Notes Tobacco use: Current every day smoker Problems Problem Type SNOMED Code ICD Code Onset Dates Problem Status W/U Status Risk Notes Problem Mixed hyperlipidemia (488069023) Mixed hyperlipidemia (E78.2) Active confirmed Kenny-Bi n Problem Essential hypertension (65896088) Essential (primary) hypertension (I10) Active confirmed Kenny-Bi n Problem Primary generalised osteoarthritis (185219127) Primary generalized (osteo)arthritis (M15.0) Active confirmed Kenny-Bi n Problem Pain of right knee region (finding) (431441995612884) Pain in right knee (M25.561) Active confirmed Kenny-Bi n Problem Low back pain (452730670) Low back pain (M54.5) Active confirmed Kenny-Bi n Problem Malignant neoplasm of upper lobe, bronchus or lung (628011892) Malignant neoplasm of upper lobe, right bronchus or lung (C34.11) Active confirmed Problem Ventricular fibrillation (74233984) Ventricular fibrillation (I49.01) Active confirmed Problem Neuropathy (689179484) Neuropathy (G62.9) Active confirmed Problem Allergic rhinitis (12213498) Allergic rhinitis (J30.9) Active confirmed Problem Arthritis (6340119) Arthritis (M19.90) Active c onfirmed Problem Patient immunocompromised (265964725) Immunocompromised patient (D84.9) Active confirmed Problem Insomnia (211865840) Insomnia (G47.00) Active confirmed Problem Malignant tumor of lung (832895842) Malignant neoplasm of lung, unspecified laterality, unspecified part of lung (C34.90) Active confirmed Problem STEMI - ST elevation myocardial infarction (339704749) ST elevation myocardial infarction (STEMI), unspecified artery (I21.3) Active confirmed Problem Hearing loss (94264819) Hearing loss, unspecified hearing loss type, unspecified laterality (H91.90) Active confirmed Problem Chronic obstructive lung disease (09996332) COPD without exacerbation (J44.9) Active confirmed Vital Signs Heart Rate 68 /min 10/05/2024 4.2.25 [facility] Temperature 97.4 degrees Fahrenheit 10/05/2024 4.2. 25 [facility] Respiratory Rate 18 /min 10/05/2024 4.2.25 [facility] Oximetry 96 % 10/05/2024 4.2.25 [facility] Blood pressure diastolic 70 mm Hg 10/05/2024 4.2 .25 [facility] Height 76 in 10/05/2024 4.2.25 [facility] Blood pressure systolic 132 mm Hg 10/05/2024 4.2. 25 [facility] Weight 193 lbs 10/05/2024 4.2.25 [facility] BMI 23.49 kg/m2 10/05/2024 4.2.25 [facility] Encounters Encounter Location Date Provider Diagnosis [facility] [place] [place], [place] [address] 08/25/2024 Gertrudis Mccoy Malignant neoplasm o f lung, unspecified laterality, unspecified part of lung C34.90 ; COPD without exacerbation J44.9 ; Allergic rhinitis J30.9 ; Essential (primary) hypertension I10 ; Mixed hyperlipidemia E78.2 and Insomnia G47.00 [facility] [place], [place] [address] 09/15/[address] elevation myocard ial infarction (STEMI), unspecified artery I21.3 ; Cardiogenic shock R57.0 ; Ventricular fibrillation I49.01 ; Malignant neoplasm of lung, unspecified laterality, unspecified part of lung C34.90 ; COPD without exacerbation J44.9 ; Allergic rhinitis J30.9 ; Essential (primary) hypertension I10 ; Mixed hyperlipidemia E78.2 ; Insomnia G47.00 and Tobacco abuse Z72.0 [facility] [address] [place] [address] 10/05/2024 Gertrudis Mccoy Cardiogenic shock R5 7.0 ; ST elevation myocardial infarction (STEMI), unspecified artery I21.3 ; Ventricular fibrillation I49.01 ; Malignant neoplasm of lung, unspecified laterality, unspecified part of lung C34.90 ; COPD without exacerbation J44.9 ; Allergic rhinitis J30.9 ; Essential (primary) hypertension I10 ; Mixed hyperlipidemia E78.2 ; Insomnia G47.00 and Tobacco abuse Z72.0 Assessments Encounter Date Diagnosis (ICD Code) Assessment Notes Treatment Notes Treatment Clinical Notes Section Notes 08/25/2024 Malignant neoplasm of lung, unspecified laterality, unspecified part of lung (ICD-10 - C34.90) continue to follow with oncology and pulm; was recently placed on prednisone for rash 08/25/2024 COPD without exacerbation (ICD-10 - J44.9) stable discussed trying trelegy inhaler today gave sample continue to use inhalers and nebs 09/15/2024 Cardiogenic shock (ICD-10 - R57.0) 09/15/2024 ST elevation myocardial infarction (STEMI), unspecified artery (ICD-10 - I21.3) Pt started on BB stent placed started on plavix pt has nitro and knows how to use it. discussed going to ther ER if chest pain. 10/05/2024 Cardiogenic shock (ICD-10 - R57.0) 10/05/2024 ST elevation myocardial infarction (STEMI), unspecified artery (ICD-10 - I21.3) stent placed following with Dr. Coy on new regimen, he has been taking medicaiton pt has nitro and knows how to use it. discussed going to ther ER if chest pain. 10/05/2024 Ventricular fibrillation (ICD-10 - I49.01) started on amiodarone follows with cardio for stress test soon 09/15/2024 Ventricular fibrillation (ICD-10 - I49.01) started on amiodarone follows with cardio in a few weeks 08/25/2024 Allergic rhinitis (ICD-10 - J30.9) stable 08/25/2024 Essential (primary) hypertension (ICD-10 - I10) Kenny-Bin BP under good control with current regimen, discussed low salt diet, measuring BP some times. cont. current meds. 09/15/2024 Malignant neoplasm of lung, unspecified laterality, unspecified part of lung (ICD-10 - C34.90) continue to follow with oncology and pulm; was recently placed on prednisone for rash 10/05/2024 Malignant neoplasm of lung, unspecified laterality, unspecified part of lung (ICD-10 - C34.90) continue to follow with oncology and pulm; was recently placed on prednisone for rash 10/05/2024 COPD without exacerbation (ICD-10 - J44.9) stable discussed trying trelegy inhaler today gave sample continue to use inhalers and nebs 09/15/2024 COPD without exacerbation (ICD-10 - J44.9) stable discussed trying trelegy inhaler today gave sample continue to use inhalers and nebs 08/25/2024 Mixed hyperlipidemia (ICD-10 - E78.2) Kenny-Bin stable 08/25/2024 Insomnia (ICD-10 - G47.00) Will try seroquel today and follow up 09/15/2024 Allergic rhinitis (ICD-10 - J30.9) stable 10/05/2024 Allergic rhinitis (ICD-10 - J30.9) stable 10/05/2024 Essential (primary) hypertension (ICD-10 - I10) Kenny-Bin BP under good control with current regimen, discussed low salt diet, measuring BP some times. cont. current meds. 09/15/2024 Essential (primary) hypertension (ICD-10 - I10) Kenny-Bin BP under good control with current regimen, discussed low salt diet, measuring BP some times. cont. current meds. 09/15/2024 Mixed hyperlipidemia (ICD-10 - E78.2) Kenny-Bin stable 10/05/2024 Mixed hyperlipidemia (ICD-10 - E78.2) Kenny-Bin stable 09/15/2024 Insomnia (ICD-10 - G47.00) Will try seroquel today and follow up 10/05/2024 Insomnia (ICD-10 - G47.00) 10/05/2024 Tobacco abuse (ICD-10 - Z72.0) 09/15/2024 Tobacco abuse (ICD-10 - Z72.0) Plan Of Treatment Pending Test Test Name Order Date Phosphorus, Serum 10/18/2018 Hemoglobin A1c 10/18/2018 Magnesium, Serum 10/18/2018 Urinalysis, Complete 09/27/2017 TSH 10/18/2018 CBC With Differential/Platelet 9 Lipid Panel With LDL/HDL Ratio 9 Comp. Metabolic Panel (14) 10/18/2018 Urine Drug Screen 01/19/2018 Insurance Providers Payer Name Payer Address Payer Phone Subscriber Number Group Number Insured Name Patient Relationship to Insured Coverage Start Date Coverage End Date [employer] MED[employer] Health Plan [address] [place] [phone] [id number] Francisco Jones Self - patient is the insured [facility] MEDICAID-R [place] [address] [address] [place] [address] [id number] Francisco Jones Self - patient is the insured Medical (General) History Medical History History ICD Code Hypertension (Kenny)High Cholesterol (Kenny) cervical disc disease insomnia seasonal allergieese copd cerumen impaction hearing loss RUL mass found on MRI STEMI with stent placed 09/2024 Surgical History Surgery Date(Month/Year) GALLBLADDER REMOVED
--- OUTSIDE RECORDS SUMMARY | 2024-12-27 19:45 | XMS_ITS | Clinical Summary ---
Author Organization [employer] Address [address] [place] [address] Care Team Providers Care Lpn Cma Name Role Phone Marlon Rendon MD Primary Care Provider [phone] Allergies No known active allergies Medications No known medications Encounters Date Type Department Care Team Description 10/04/2024 8:59 PM EDT - 10/04/2024 10:47 PM EDT Emergency [facility] Emergency Department [address] [place] [address] Vince Bennett MD Atypical chest pain (Primary Dx) Discharge Disposition: Home or Self Care 10/04/2024 Travel from Last 3 Months Social History Tobacco Use Types Packs/Day Years [...] Date Tono rded Speak language other than [place] at home Not on file 07/22/2023 Want [...] 09/26/2022 2:17 PM EDT Plan of Treatment Health Maintenance Due Date Last Done Comments CT Colonography 1959 Colonoscopy 1959 Colorectal Cancer Screening 1959 FOBT/FIT 1959 Fit-DNA (Cologuard) 1959 Sigmoidoscopy 1959 Depression Screening (12+) 1971 Tobacco Cessation Counseling and Screening (12+) 1971 HIV Screening 1974 Hepatitis C Screening 1977 DTAP/TDAP/TD VACCINES (1 - Tdap) 1978 Pneumococcal 50+ years (1 of 2 - PCV) 1978 Lipid Panel 1994 Shingles Vaccine (Zoster) (1 of 2) 2009 COVID-19 VACCINE (3 - season) 03/05/202407/2020, 05/07/2021 Falls Risk Screening 07/05/2024 Influenza Vaccine (Season Ended) 2025 Respiratory Syncytial Virus (RSV) Adult or (1 - 1-dose 75+ series) 2034 Procedures Procedure Name Priority Date/Time Associated Diagnosis [...] 10.8 K/ L 10/04/2024 9:12 PM EDT [facility] RBC 4.79 3.80 - 5.20 M/ L 10/04/2024 9:12 PM EDT [facility] Hemoglobin 13.2 12.8 - 17.4 GM/DL 10/04/2024 9:12 PM EDT [facility] Hematocrit 39.5 39.0 - 51.0 % 10/04/2024 9:12 PM EDT [facility] MCV 83 81 - 101 fL 10/04/2024 9:12 PM EDT [facility] MCH 27.6 27.0 - 34.0 pg 10/04/2024 9:12 PM EDT [facility] MCHC 33.4 32.0 - 36.0 GM/DL 10/04/2024 9:12 PM EDT [facility] RDW 15.9(H) 11.5 - 14.5 % 10/04/2024 9:12 PM EDT [facility] Platelets 277 150 - 400 K/CU MM 10/04/2024 9:12 PM EDT [facility] MPV 10.7 9.4 - 12.4 fL 10/04/2024 9:12 PM EDT [facility] Nucleated Red Blood Cell 0.0 0 - 0.2 % 10/04/2024 9:12 PM EDT [facility] % Neutros 63 37 - 80 % 10/04/2024 9:12 PM EDT [facility] % Lymphs 26 10 - 50 % 10/04/2024 9:12 PM EDT [facility] % Monos 8 5 - 13 % 10/04/2024 9:12 PM EDT [facility] % Eos 2 0 - 7 % 10/04/2024 9:12 PM EDT [facility] % Baso 1 0 - 3 % 10/04/2024 9:12 PM EDT [facility] NRBC Absolute <0.01 0 - 0.012 K/ul 10/04/2024 9:12 PM EDT [facility] # Neutros 9.14(H) 2.00 - 6.90 K/ L 10/04/2024 9:12 PM EDT [facility] # Lymphs 3.82(H) 0.60 - 3.40 K/ L 10/04/2024 9:12 PM EDT [facility] # Monos 1.15(H) 0.00 - 0.90 K/ L 10/04/2024 9:12 PM EDT [facility] # Eos 0.28 0.00 - 0.70 K/ L 10/04/2024 9:12 PM EDT [facility] # Baso 0.10 0.00 - 0.20 K/ L 10/04/2024 9:12 PM EDT [facility] Immature Granulocytes-Re lative 0.50 % 10/04/2024 9:12 PM EDT [facility] # IG 0.07(H) 0.00 - 0.00 K/uL 10/04/2024 9:12 PM EDT [facility] Blood Venipuncture / Unknown 10/04/2024 9:07 PM EDT 10/04/2024 9:07 PM EDT Narrative [facility] - 10/04/2024 9:12 PM EDT When [...] Blast? Flag noted Atypical Lymph flag noted Vince Bennett MD LAB BLOOD ORDERABLES Final Resu lt Performing Organization Address [facility]/ZIP Co de Phone Number [facility] [address] [place] [address] * High Sensitivity Troponin I (10/04/2024 9:07 PM EDT) [facility] Troponin I High Sensitivity (pg/mL) 14.9 4 - 60.3 pg/mL 10/04/2024 9:56 PM EDT [facility] Comment: Troponin Result (pg/mL) *Interpretation 4-60.3 [...] ORDERABLES Final Resu lt Performing Organization Address [facility] Co de Phone Number [facility] [address] [place] [address] * (ABNORMAL) PROBNP (10/04/2024 9:07 PM EDT) [facility] ProBNP (pg/mL) 1,185(H) 5 - 125 pg/mL 10/04/2024 9:56 PM EDT [facility] Blood Venipuncture / Unknown 10/04/2024 9:07 PM EDT 10/04/2024 9:07 PM EDT us Vince Benntet MD LAB BLOOD ORDERABLES Final Resu lt [facility] [address] [place] [address], [facility] [phone] * (ABNORMAL) Comprehensive metabolic panel (10/04/2024 9:07 PM EDT) Sodium 132(L) 136 - 145 meq/L 10/04/2024 9:56 PM EDT [facility] Potassium 3.0(L) 3.5 - 5.1 meq/L 10/04/2024 9:56 PM EDT [facility] Chloride 99 98 - 107 meq/L 10/04/2024 9:56 PM EDT [facility] CO2 23 21 - 32 meq/L 10/04/2024 9:56 PM EDT [facility] Calcium 8.5 8.5 - 10.1 mg/dL 10/04/2024 9:56 PM EDT [facility] Glucose 74 70 - 99 mg/dL 10/04/2024 9:56 PM EDT [facility] BUN 12 7 - 18 mg/dL 10/04/2024 9:56 PM EDT [facility] Creatinine 1.21(H) 0.70 - 1.20 mg/dL 10/04/2024 9:56 PM EDT [facility] BUN/Creatinine 10 10/04/2024 9:56 PM EDT [facility] Albumin 3.2(L) 3.4 - 5.0 g/dL 10/04/2024 9:56 PM EDT [facility] Alkaline Phosphatase 171(H) 46 - 116 U/L 10/04/2024 9:56 PM EDT [facility] ALT 23 12 - 78 U/L 10/04/2024 9:56 PM EDT [facility] AST 20 15 - 37 U/L 10/04/2024 9:56 PM EDT [facility] Total Bilirubin 0.5 0.2 - 1.0 mg/dL 10/04/2024 9:56 PM EDT [facility] Protein, Total 7.6 6.4 - 8.2 gm/dL 10/04/2024 9:56 PM EDT [facility] Anion Gap 13 11 - 22 10/04/2024 9:56 PM EDT [facility] A/G Ratio 0.7 10/04/2024 9:56 PM EDT [facility] Globulin 4.4 g/dL 10/04/2024 9:56 PM EDT [facility] Osmolality Calc 262.9 mOsm/kg 9:56 PM EDT [facility] eGFR (mL/min/1.73m2) >60 >=60 mL/min/1.7 3m2 10/04/2024 9:56 PM EDT [facility] Comment:ESTIMATED GFR IS NOT ACCURATE CREATININE CLEARANCE IN PREDICTING GLOMERULAR FILTRATION RATE. ESTIMATED GFR IS NOT APPLICABLE FOR DIALYSIS PATIENTS. Blood Venipuncture / Unknown 10/04/2024 9:07 PM EDT 10/04/2024 9:07 PM EDT us Vince Bennett MD LAB BLOOD ORDERABLES Final Resu lt [facility] [address] [place] [address] * ECG 12 lead (10/04/2024 9:03 PM EDT) VENTRICULAR RATE EKG/MIN 67 BPM GE MUSE ATRIAL RATE (MCT) 67 BPM GE MUSE IN Interval 166 ms GE MUSE QRS-INTERVAL (MSEC) 96 ms GE MUSE QT Interval 432 ms GE MUSE QTC Interval 456 ms GE MUSE P [place] 65 degrees GE MUSE R AXIS (MCT) -10 degrees GE MUSE T Wave [place] 81 degrees GE MUSE Spring Diagnosis Normal sinus rhythm Cannot rule out Anterior infarct , age undetermined Abnormal ECG Confirmed by Jamar FREEMAN, GERALDINE ([id number]) on 10/05/2024 12:25:26 PM GE MUSE 10/04/2024 9:03 PM EDT 10/05/2024 12:25 PM EDT us Vince Bennett MD ECG ORDERABLES Final Result SANTOS LEDESMA from Last 3 Months Insurance [facility] DUAL COMPLETE MCR ADV [employer] Care Teams Lpn Cma Relationship Specialty Start Date End Date Marlon Rendon MD [address] [place] [address] PCP - General Nephrology 09/26/22
[2024-12-27 19:46] LABS: VBG Base Excess -3.4 mmol/L (-2.4-2.3); VBG HCO3 20.9 mmol/L (23-30); VBG PCO2 32.4 mmol/L (35-51); VBG PH 7.43 mmol/L (7.31-7.41); VBG PO2 123.8 mmol/L (28-40); VBG Total CO2 21.9 mmol/L (23-27)
[2024-12-27] MEDS: ACETAMINOPHEN 500MG TAB 1000 MG PO (19:46)
[2024-12-27 19:47] LABS: Lactate Venous 3.3 mmol/L (0.4-2.0)
[2024-12-27 19:48] LABS: Basophils # 0.1 K/mm3 (0-0.2); Eosinophils # 0.6 Kmm3 (0.0-0.4); Eosinophils % 5.2 % (0.1-12.0); Hematocrit 33.9 % (42.0-52.0); Hemoglobin 11.3 g/dL (14.1-18.0); Immature Granulocytes # 0.05 10^3uL; Immature Granulocytes % 0.4 %; Lymphocytes # 2.5 K/mm3 (0.7-4.5); Lymphocytes % 21.6 % (10-50); Mean Corpuscular HGB Conc 33.3 g/dL (31.8-35.4); Mean Corpuscular Hemoglobin 27.4 pg (27.0-31.2); Mean Corpuscular Volume 82.1 fl (80-94); Mean Platelet Volume 10.1 fl (7.4-10.4); Monocytes # 0.9 K/mm3 (0.1-1.0); Monocytes % 8.3 % (1.7-9.3); Neutrophils # 7.2 K/mm3 (1.8-7.8); Neutrophils % 63.5 % (37.0-80.0); Nucleated Red Blood Cells # 0 10^3/uL; Nucleated Red Blood Cells % 0 %; Platelet Count 296 K/mm3 (142-424); Red Blood Count 4.13 M/mm3 (4.60-6.20); Red Cell Distribution Width 14.5 % (11.5-17.5); White Blood Count 11.3 K/mm3 (4.8-10.8)
[2024-12-27 20:02] LABS: INR 0.97 (0.9-1.1); Prothrombin Time 10.8 seconds (10.1-12.5)
[2024-12-27 20:03] LABS: Alanine Aminotransferase 17 U/L (12-78); Albumin/Globulin Ratio 1.4 (1.1-1.8); Alkaline Phosphatase 107 U/L (38-126); Aspartate Amino Transferase 33 U/L (17-59); Bilirubin,Total 0.5 mg/dl (0.2-1.3); Blood Urea Nitrogen 16 mg/dl (9-20); Carbon Dioxide 22 mmol/L (22.0-30.0); Chloride 101 mmol/L (98-107); Creatinine Clearance Estimated 64 mL/min (50-200); Estimated Glomerular Filt Rate 51 ml/min (>60); GFR (African American) 62 ML/MIN (>60); Globulin 2.8 g/dL (1.3-3.2); Glucose 93 mg/dl (74-100); Lipase 109 U/L (23-300); Sodium 136 mmol/L (136-145); Total Protein,Serum 6.8 g/dl (6.3-8.2)
--- NOTE | 2024-12-27 20:03 | CT_ITS ---
PROCEDURE INFORMATION: Exam: CTA Chest With Contrast Exam date and time: 12/27/2024 8:33 PM Age: 64 years old Clinical indication: Pain; Chest pressure; Additional info: Chest pain, h/o lung CA TECHNIQUE: Imaging protocol: Computed tomographic angiography of the chest with contrast. Exam focused on the arteries. 3D rendering (Not supervised by radiologist): MIP and/or 3D reconstructed images were created by the technologist. Radiation optimization: All CT scans at this facility use at least one of these dose optimization techniques: automated exposure control; mA and/or kV adjustment per patient size (includes targeted exams where dose is matched to clinical indication); or iterative reconstruction. Contrast material: ISOVUE; Contrast volume: 70 ml; Contrast route: INTRAVENOUS (IV); COMPARISON: No relevant prior studies available. FINDINGS: Pulmonary arteries: Normal. No pulmonary emboli. Aorta: Unremarkable. No aortic aneurysm. No aortic dissection. Lungs: There is a 5 cm spiculated subpleural mass in the posterior right lung apex. Adjacent surrounding calcified granulomas noted. Small focus of subpleural scarring noted in the left lung apex. Moderate changes of subpleural emphysema in the bilateral lung apices. Mild bibasilar atelectasis noted. Pleural spaces: Unremarkable. No pneumothorax. No pleural effusion. Heart: Unremarkable. No cardiomegaly. No pericardial effusion. Lymph nodes: Unremarkable. No enlarged lymph nodes. Bones/joints: Unremarkable. No acute fracture. Soft tissues: Unremarkable. IMPRESSION: Highly suspicious 5 cm right upper lobe lung mass. Given known history of lung cancer, correlation with prior studies recommended if available. Otherwise, PET/CT and/or biopsy is indicated. COMMENTS: The presence of pulmonary emphysema on CT is an independent risk factor for lung cancer. In the absence of a history or active diagnosis of lung cancer, it is recommended that this patient with emphysema be evaluated for enrollment in a low dose CT lung cancer screening program.
[2024-12-27 20:08] LABS: C-Reactive Protein 2.8 mg/L (0-4)
[2024-12-27 20:11] LABS: Ethyl Alcohol 149 mg/dl (0-10)
[2024-12-27 20:19] LABS: Procalcitonin 0.063 ng/mL (0.0-2.0)
[2024-12-27 20:21] LABS: Troponin I < 0.01 ng/ml (0.00-0.034)
[2024-12-27] MEDS: POTASSIUM CHLORIDE 20MEQ TAB 60 MEQ PO (20:37)
[2024-12-27] MEDS: IOPAMIDOL-370 (76%);100ML BOTTLE 70 ML IV (20:37)
[2024-12-27] MEDS: SODIUM CHLORIDE 0.9% 10ML SYR (RAD ONLY) 10 ML IV (20:37)
[2024-12-27] MEDS: 0.9 % SODIUM CHLORIDE 50 ML VIAL IV (20:37)
[2024-12-27 20:55] LABS: Erythrocyte Sedimentation Rate 20 mm/hr (0-20)
[2024-12-27 21:08] LABS: Microscopic, Urine URINE MICROSCOPIC (MICROSCOPIC)
[2024-12-27 21:11] LABS: Appearance,Urine SL CLOUDY (Clear); Bilirubin,Urine Negative (Negative); Blood, Urine Negative (Negative); Color,Urine YELLOW (Yellow); Glucose,Urine (UA) Negative (Negative); Ketones,Urine Negative (Negative); Leukocyte Esterase,Urine Negative (Negative); Nitrate,Urine Negative (Negative); Protein,Urine Negative (Negative); Specific Gravity, Urine <= 1.005 (1.005-1.030); Urobilinogen,Urine 0.2 EU/dl (0.2)
[2024-12-27 21:14] LABS: Hepatitis C Ab Qual. W/ RFX NEGATIVE (Negative)
[2024-12-27 21:15] LABS: HIV Combo NEGATIVE (Negative)
[2024-12-27 21:24] LABS: Barbiturates Screen,Urine Negative ng/ml (<200)
[2024-12-27 21:25] LABS: Amphetamine/Metha Screen,Urine Negative ng/ml (<1000); Benzodiazepines Screen,Urine Negative ng/ml (<200)
[2024-12-27 21:26] LABS: Cannabinoid Screen,Urine Negative ng/ml (<50); Methadone Screen,Urine Negative ng/ml (<300)
[2024-12-27 21:27] LABS: Cocaine Screen,Urine Negative ng/ml (<300)
[2024-12-27 21:28] LABS: Bacteria,Urine 1+ /lpf; Mucus,Urine 1+ /lpf; Opiate Screen,Urine Negative ng/ml (<300); Phencyclidine Screen,Urine Negative ng/ml (<25)
[2024-12-27 23:47] LABS: Troponin I < 0.01 ng/ml (0.00-0.034)
== END 2024-12-27 23:49 | disposition home or self-care (01) ==
PROVIDERS: Physician Assistant; Emergency Provider Emergency Medicine; PCP Internal Medicine
DX: R07.9 Chest pain, unspecified (principal); F10.929 Alcohol use, unspecified with intoxication, unspecified; E87.6 Hypokalemia; R20.2 Paresthesia of skin; F17.210 Nicotine dependence, cigarettes, uncomplicated; Y90.6 Blood alcohol level of 120-199 mg/100 ml
CPT/HCPCS: 71275; 80053; 80307; 80320; 81001; 82803; 83690; 83735; 84145; 84484; 85025; 85610; 85651; 86140; 86803; 87389; 93005; 96361; 96374; 99285; J2405; J7030; Q9967

== ENCOUNTER 2025-04-16 00:19 | Observation (INO) | payer MEDICARE, MEDICAID, SELFPAY ==
--- OUTSIDE RECORDS SUMMARY | 2024-09-22 05:45 | XMS_ITS ---
Author Organization [facility] [place] Address [address] [place] [address] Care Team Providers Care Clinic Charge Nurse Name Role Phone ZA CORDOBA Primary Care Provider Julieta LLAMAS, Za Unavailable Unavailable Gertrudis Mccoy [phone] REASON FOR VISIT follow up Encounters Encounter Location Date Provider Diagnosis [facility] [place] [address] [facility] [address] [address] [place] [address] 09/22/2024 Gertrudis Mccoy Plan Of Treatment No Information Progress Notes * Francisco JONES RDOB:[birth year] (64 yo M)Acc No.[id number]:09/22/2024 Progress Notes Patient: Ashkan NICOLASshelia Montelongo Provider: Jillian Mccoy :1960 A ge:64 Y S ex:Male Date:09/22/2024 Address:[address], [place], [place] Pcp:ZA CORDOBA Subjective: * Chief Complaints: * 1 . Follow up. * Medical History: Objective: * Vitals: Assessment: Plan: * Treatment: * * Electronic signature of Everette Mccoy PAC on 04/16/2025 at 12:24 AM EDT Sign off status: Pending * Provider: Jillian Mccoy Date: 0 09/22/2024 Generated for Glenn curiel/Karlee/eTransmitting on: 1 12:24 AM EDT
--- OUTSIDE RECORDS SUMMARY | 2024-11-03 09:45 | XMS_ITS ---
Author Organization [facility] [place] Address [address] [place] [address] Care Team Providers Care Garnett Machine Operator Name Role Phone ZA CORDOBA Primary Care Provider Julieta LLAMAS, Za Unavailable Unavailable Nicole Jimenez Unavailable [phone] REASON FOR VISIT 1 month f/u Encounters Encounter Location Date Provider Diagnosis [facility] [address] [place] [address] 11/03/2024 Nicole Jimenez Plan Of Treatment No Information Progress Notes * Francisco JONES RDOB:[birth year] (64 yo M)Acc No.[id number]:11/03/2024 Progress Notes Patient: Ashkan NICOLASshelia Montelongo Appointment Provider: Jillian Jimenez APRN, CNP :1960 A ge:64 Y S ex:Male Date:11/03/2024 Address:[address], [place], [place] Pcp:ZA CORDOBA Subjective: * Chief Complaints: * 1 . 1 month f/u. * Medical History: Objective: * Vitals: Assessment: Plan: * Treatment: * * Electronic signature of Damon Schumacher APRN on 04/16/2025 at 12:24 AM EDT Sign off status: Pending * Appointment Provider: Jillian Jimenez APRN, CNP Date: 11/03/2024 Generated for Printing/Faxing/eTransmitting on: 1 12:24 AM EDT
--- OUTSIDE RECORDS SUMMARY | 2024-11-10 07:30 | XMS_ITS ---
Author Organization [facility] [place] Address [address] [facility] [place] [address] Care Team Providers Care Sales Support Coordinator Name Role Phone MARLON CORDOBA Primary Care Provider [phone] Julieta LLAMAS, Marlon Unavailable Unavailable Gertrudis Mccoy [phone] REASON FOR VISIT medicare wellness Encounters Encounter Location Date Provider Diagnosis [facility] [place] [address] [place] [address] 11/10/2024 Gertrudis Mccoy Plan Of Treatment No Information Progress Notes * Francisco JONES RDOB:[birth year] (64 yo M)Acc No.[id number]:11/10/2024 Progress Note Patient: Ashkan NICOLASuel Jayda Provider: Jillian Mccoy :1960 A ge:64 Y S ex:Male Date:11/10/2024 Address:[address], [place], [place] Pcp:MARLON CORDOBA Subjective: * Chief Complaints: * 1 . Medicare wellness. * Medical History: Objective: * Vitals: Assessment: Plan: * Treatment: * * Electronic signature of Everette Mccoy PAC on 04/16/2025 at 12:24 AM EDT Sign off status: Pending * Provider: Jillian Mccoy Date: 0 11/10/2024 Generated for Glenn curiel/Karlee/eTgilbertosmitting on: 1 12:24 AM EDT
[2025-04-16] VITALS (12 sets, daily range): BP systolic 113–138; BP diastolic 71–87; PULSE 62–81; RESP 13–23; TEMP 36.6–36.9; O2SAT 90–98; BMI 24.3; BMI 24.6
--- NOTE | 2025-04-16 00:18 | ECG_ITS ---
APPROVED REPORT Exam: Resting ECG HR:71 bpm ECG Measurements Heart Rate 71 AXES FL 166 P 67 QRSd 100 QRS 29 QT 411 T 46 QTc 433 Conclusion SINUS RHYTHM NORMAL ECG Electronically signed by : WILLIAM BENITEZ, 04/16/2025 06:49:57
--- NOTE | 2025-04-16 00:21 | XR_ITS ---
PROCEDURE INFORMATION: Exam: XR Chest Exam date and time: 04/16/2025 1:25 AM Age: 64 years old Clinical indication: Pain and condition or disease; Other: Cancer; Chest pressure; Additional info: Chest pain TECHNIQUE: Imaging protocol: Radiologic exam of the chest. Views: 1 view. COMPARISON: CT ANGIO CHEST PE PROTOCOL 04/16/2025 1:22 AM FINDINGS: Tubes, catheters and devices: Right chest medical port with catheter tip terminating at the distal superior vena cava. Lungs: Right upper lung opacity better assessed on the concurrently performed CT angiogram of the chest. Pleural spaces: Unremarkable. No pleural effusion. No pneumothorax. Heart/Mediastinum: Unremarkable. No cardiomegaly. Bones/joints: Degenerative changes of the visualized osseous structures. IMPRESSION: 1. No acute cardiopulmonary findings. 2. Known right upper lung neoplasm better assessed on the concurrently performed CT angiogram of the chest.
--- NOTE | 2025-04-16 00:21 | CT_ITS ---
PROCEDURE INFORMATION: Exam: CTA Chest With Contrast Exam date and time: 04/16/2025 1:22 AM Age: 64 years old Clinical indication: Pain and condition or disease; Other: Cancer; Chest pressure; Additional info: 04/13 chest pain, cancer PT on chemo TECHNIQUE: Imaging protocol: Computed tomographic angiography of the chest with contrast. Exam focused on the arteries. 3D rendering (Not supervised by radiologist): MIP and/or 3D reconstructed images were created by the technologist. Radiation optimization: All CT scans at this facility use at least one of these dose optimization techniques: automated exposure control; mA and/or kV adjustment per patient size (includes targeted exams where dose is matched to clinical indication); or iterative reconstruction. Contrast material: ISO 370; Contrast volume: 70 ml; Contrast route: INTRAVENOUS (IV); COMPARISON: CT ANGIO CHEST PE PROTOCOL 12/27/2024 8:33 PM FINDINGS: Tubes, catheters and devices: Right chest wall medical port with catheter tip terminating at the distal superior vena cava. Pulmonary arteries: Normal. No pulmonary emboli. Aorta: Unremarkable. No aortic aneurysm. No aortic dissection. Lungs: COPD changes of the chest. Scarring and atelectasis of the lung bases. Scattered calcified right lung granulomas. Unchanged peripheral left upper lobe nodule (series 5, image 39). Pleural spaces: Posterior right upper lobe mass with broad pleural contact measuring 3.6 x 4.8 x 4.6 cm (series 5, image 39; series 1001, image 81). Heart: Unremarkable. No cardiomegaly. No pericardial effusion. Coronary arteries: Heavy coronary calcified atherosclerotic disease. Lymph nodes: Lymph nodes of the mediastinum appear unchanged. Gallbladder and biliary ducts: Cholecystectomy changes. Pancreas: Pancreatic atrophy. Spleen: Incidental splenule. Bones/joints: Diffuse degenerative changes of the visualized osseous structures. Soft tissues: Unremarkable. IMPRESSION: 1. No pulmonary embolus. 2. No acute thoracic findings. 3. Grossly stable right upper lung neoplasm from 12/27/2024. 4. Stable prominent mediastinal lymph nodes from prior comparison.
--- OUTSIDE RECORDS SUMMARY | 2025-04-16 00:25 | XMS_ITS | Patient Health Record ---
Author Organization [facility] Address [address] [place] [address] Care Team Providers Care Digital Marketing Executive Name Role Phone ZA RENDON Primary Care Provider Za Rendon MD Unavailable Unavailable Gertrudis Mccoy Unavailable [phone] Nicole Jimenez Unavailable [phone] Allergies No Known Allergies Reason For Referral No Information Medications Medication SIG (Take, Route, Frequency, Duration) Notes Start Date End Date Status Ipratropium-Albuterol 0.5-2.5 (3) MG/3ML 3 mL as needed Inhalation every 6 hrs as needed; Duration: 30 days 05/11/2023 Active traZODone HCl 50 MG 1 tablet at bedtime as needed Orally Once a day; Duration: 30 day(s) Active Cetirizine HCl 10 MG 1 tablet Orally Onc e a day; Duration: 90 Active Flonase 50 MCG/ACT 1 spray in each nost ril Nasally Once a day; Duration: 30 day(s) undefined 08/02/2017 Active Trelegy Ellipta 100-62.5-25 MCG/ACT 1 puff Inhalation Once a day; Duration: 30 days Active QUEtiapine Fumarate 25 MG TAKE ONE TABLE T BY MOUTH AT BEDTIME; Duration: 30 Active Metoprolol Succinate ER 25 MG 1 tablet Orally Once a day cardio Active Anoro Ellipta 62.5-25 MCG/INH 1 puff Inhalation Once a day; Duration: 90 days Active Atorvastatin Calcium 40 MG 1 tablet Orally Once a day cardio Active Amiodarone HCl 200 MG 1 tablet Orally On ce a day cardio 09/15/2024 Active Valsartan 80 MG 1 tablet Orally Once a day cardio 09/15/2024 Active Albuterol Sulfate HFA 108 (90 Base) MCG/ACT 1 puff as needed Inhalation every 4 hrs; Duration: 30 days Active Nicotine 14 MG/24HR 1 patch to skin Transdermal Once a day; Duration: 30 days Active Nitroglycerin 0.4 MG 1 tablet under the tongue and allow to dissolve as needed. Take every 5 minutes up to 3 times if chest pain persists Sublingual Three times a day Active Ondansetron HCl 4 MG 1 tablet Orally usha ry 6 hours as needed; Duration: 15 days 08/02/2023 Active Nicotine Step 1 21 MG/24HR 1 patch to skin Transdermal Once a day; Duration: 15 days Active Aspirin Low Dose 81 MG TAKE ONE TABLET B Y MOUTH DAILY FOR HEART; Duration: cardio Active Polyethylene Glycol 3350 17 GM/SCOOP 1 scoop mixed with 8 ounces of fluid Orally Once a day; Duration: 30 days 08/30/2023 Active Nicotine 7 MG/24HR 1 patch to skin Transdermal Once a day; Duration: 30 days Active Clopidogrel Bisulfate 75 MG [...] W/U Status Risk Notes Problem Mixed hyperlipidemia (207707426) Mixed hyperlipidemia (E78.2) Active confirmed Kenny-Bi n Problem Essential hypertension (89340344) Essential (primary) hypertension (I10) Active confirmed Kenny-Bi n Problem Primary generalised osteoarthritis (314786084) Primary generalized (osteo)arthritis (M15.0) Active confirmed Kenny-Bi n Problem Pain of right knee region (finding) (561658740089218) Pain in right knee (M25.561) Active confirmed Kenny-Bi n Problem Low back pain (802290803) Low back pain (M54.5) Active confirmed Kenny-Bi n Problem Malignant neoplasm of upper lobe, bronchus or lung (856415913) Malignant neoplasm of upper lobe, right bronchus or lung (C34.11) Active confirmed Problem Ventricular fibrillation (34293197) Ventricular fibrillation (I49.01) Active confirmed Problem Neuropathy (589438531) Neuropathy (G62.9) Active confirmed Problem Allergic rhinitis (83116768) Allergic rhinitis (J30.9) Active confirmed Problem Arthritis (1370761) Arthritis (M19.90) Active c onfirmed Problem Patient immunocompromised (483894414) Immunocompromised patient (D84.9) Active confirmed Problem Insomnia (930710092) Insomnia (G47.00) Active confirmed Problem Malignant tumor of lung (005488806) Malignant neoplasm of lung, unspecified laterality, unspecified part of lung (C34.90) Active confirmed Problem STEMI - ST elevation myocardial infarction (061658214) ST elevation myocardial infarction (STEMI), unspecified artery (I21.3) Active confirmed Problem Hearing loss (90356037) Hearing loss, unspecified hearing loss type, unspecified laterality (H91.90) Active confirmed Problem Chronic obstructive lung disease (23771090) COPD without exacerbation (J44.9) Active confirmed Vital [...] Provider Diagnosis [facility] [place], [place] [address] 08/25/2024 Gertrudis Mccoy Malignant neoplasm o f lung, unspecified laterality, unspecified part of lung C34.90 ; COPD without exacerbation J44.9 ; Allergic rhinitis J30.9 ; Essential (primary) hypertension I10 ; Mixed hyperlipidemia E78.2 and Insomnia G47.00 [facility] [address] [address] 09/15/[address] elevation myocard ial infarction (STEMI), unspecified artery I21.3 ; Cardiogenic shock R57.0 ; Ventricular fibrillation I49.01 ; Malignant neoplasm of lung, unspecified laterality, unspecified part of lung C34.90 ; COPD without exacerbation J44.9 ; Allergic rhinitis J30.9 ; Essential (primary) hypertension I10 ; Mixed hyperlipidemia E78.2 ; Insomnia G47.00 and Tobacco abuse Z72.0 [facility] [place] [address] [place] [address] 10/05/2024 Gertrudis Mccoy Cardiogenic shock R5 7.0 [...] Date [employer] MEDICARE Health Plan [address] [place] [address] [id number] Karen Francisco Self - patient is the insured [facility] MEDICAID-R UR[place] [address] [address] [place] [address] [id number] maryanne Francisco Self - patient is the insured Medical (General) History Medical History History ICD Code Hypertension (Kenny)High Cholesterol (Kenny) cervical disc disease insomnia seasonal allergieese copd cerumen impaction hearing loss RUL mass found on MRI STEMI with stent placed 09/2024 Surgical History Surgery Date(Month/Year) GALLBLADDER REMOVED
[2025-04-16] MEDS: NITROGLYCERIN 0.4MG SL TABLET 0.4 MG SL (00:35)
[2025-04-16] MEDS: ASPIRIN 81MG CHEWABLE TABLET 324 MG PO (00:36)
[2025-04-16 00:44] LABS: Lactate Venous 1.7 mmol/L (0.4-2.0); VBG HCO3 20.9 mmol/L (23-30); VBG PCO2 39.7 mmol/L (35-51); VBG PH 7.34 mmol/L (7.31-7.41); VBG PO2 79.9 mmol/L (28-40)
[2025-04-16 00:50] LABS: Hematocrit 31.4 % (42.0-52.0); Hemoglobin 10.3 g/dL (14.1-18.0); Immature Granulocytes % 0.4 %; Mean Corpuscular HGB Conc 32.8 g/dL (31.8-35.4); Mean Corpuscular Hemoglobin 26.0 pg (27.0-31.2); Mean Corpuscular Volume 79.3 fl (80-94); Nucleated Red Blood Cells % 0 %; Platelet Count 283 K/mm3 (142-424); Red Blood Count 3.96 M/mm3 (4.60-6.20); Red Cell Distribution Width-SD 43.1 fL; White Blood Count 9.2 K/mm3 (4.8-10.8)
[2025-04-16 01:08] LABS: Alanine Aminotransferase 39 U/L (12-78); Albumin Level 3.8 g/dl (3.5-5.0); Albumin/Globulin Ratio 1.3 (1.1-1.8); Alkaline Phosphatase 117 U/L (38-126); Anion Gap 16.1 mEq/L (5-15); Aspartate Amino Transferase 37 U/L (17-59); Bilirubin,Total 0.5 mg/dl (0.2-1.3); Blood Urea Nitrogen 14 mg/dl (9-20); Calcium 8.6 mg/dl (8.4-10.2); Carbon Dioxide 21 mmol/L (22.0-30.0); Chloride 110 mmol/L (98-107); Creatinine Clearance Estimated 89 mL/min (50-200); Creatinine,Serum 1.00 mg/dl (0.66-1.25); Estimated Glomerular Filt Rate 75 ml/min (>60); GFR (African American) 91 ML/MIN (>60); Globulin 2.9 g/dL (1.3-3.2); Glucose 100 mg/dl (74-100); INR 0.91 (0.9-1.1); Potassium 4.1 mmoL/L (3.5-5.1); Prothrombin Time 10.2 seconds (10.1-12.5); Sodium 143 mmol/L (136-145); Total Protein,Serum 6.7 g/dl (6.3-8.2)
--- NOTE | 2025-04-16 01:14 | ED_ITS ---
Discharge Plan Disposition Patient Disposition: Admitted Condition: Good Referrals Follow up/Referrals: Provider,Referral, [Primary Care Provider, Medical] - See instructions Clinical Impressions Clinical Impression: Chest pain Qualifiers: Chest pain type: unspecified Qualified Code(s): R07.9 - Chest pain, unspecified Alcohol intoxication Qualifiers: Complication of substance-induced condition: uncomplicated Qualified Code(s): F 10.920 - Alcohol use, unspecified with intoxication, uncomplicated Print Language Print Language: Kyrgyz Discharge ED Provider: Ayleen Martinez General Chief Complaint: Chest Pain Stated Complaint: chest pain Time Seen by Provider: 04/16/25 00:21 Mode of Arrival: Wheelchair Source of Information: Patient Description of Symptoms (Recalled from ER Triage Doc. by RN): Pt states he has chest pain for past 2 hours Took 2 NTG at home. History of Present Illness HPI narrative: 64-year-old male with history of AK, stents, lung cancer actively on chemotherapy presents to the ER with 2 hours of chest pain radiating to left arm reminiscent of his previous AK. Patient took 2 nitro at home and reports that his symptoms are somewhat improved but he is still having a numbness sensation in the left arm. He reports a slight sensation of shortness of breath but no difficulty breathing and states his symptoms have improved. No jaw pain, headache, dizziness, numbness, tingling, or weakness. No nausea or vomiting. No other complaints or concerns. Patient admits to drinking a case of beer today. He gets chemotherapy at [facility] and his next appointment for this is in 1 week. Related Data Allergies Allergy/AdvReac Type Severity Reaction Status Date / Time No Known Drug Allergies Allergy Unknown Other Verified 12/27/24 20:26 [facility] Disclaimer: The information contained in this section may have been updated after the patient was seen, as this information can be updated by other users. Social History (Updated 12/27/24 @ 22:14 by TWAN Hernandez) Smoking Status: Current every day smoker alcohol intake: current current occupational status: unemployed Travel in the last 8 weeks?: None Have you lived/traveled outside US in past 30 days?: No Contact w/someone who lives/traveled outside US past 30 days?: No Exposure to someone with infectious disease in past 14 days?: No Do you have a fever (greater than 100.4 F or 38 C)?: No Have you tested positive for COVID-19?: No Exposed to someone with COVID-19 in past 14 days?: No Do you have a sore throat?: No Do you have a cough?: No Do you have any weakness?: No Do you have any diarrhea?: No Are you experiencing any unusual bleeding?: No Do you have any muscle aches/pain?: No Do you have any abdominal pain?: No Are you experiencing loss of taste or smell?: No ROS Obtained: Yes Systems reviewed as appropriate & no additional complaints except as documented Per HPI Physical Exam General General appearance: alert and in no apparent distress Head Head exam: atraumatic and normocephalic Eye Eye exam: Present PERRL and EOMI ENT ENT exam: Present mucous membranes moist Neck Neck exam: Present normal inspection and full ROM Chest Chest inspection: Present symmetric chest wall rise; Absent tenderness Respiratory Respiratory exam: Present normal lung sounds bilaterally; Absent respiratory distress, wheezes or stridor Cardiovascular Cardiovascular exam: Present regular rate and normal rhythm Abdominal Exam Abdominal exam: Present soft; Absent distention, tenderness, guarding or rebound Extremities Exam Extremities exam: Present full ROM and normal capillary refill; Absent edema or joint swelling Neurological Exam Neurological exam: Present alert and oriented X3; Absent motor sensory deficit Psychiatric Psychiatric exam: Present normal affect and normal mood Skin Skin exam: Present warm and dry HEART Score HEART Score HEART Score assessment performed?: Yes History (anamnesis): Moderately suspicious ECG: Normal Age: >65 years Risk factors: Atherosclerosis history Troponin: </= normal limit HEART Score: 5 Critical Care Critical Care Time Critical Care Time: No Medical Decision Making Medical Records Medical records reviewed: Yes I reviewed the patient's medical records. Jonathan Inquiry Pt receiving controlled substance: No Vital Signs Vital Signs: 04/16/25 00:20 Temperature 98.4 F Temperature Source Oral Pulse Rate [Right Radial] 62 Respiratory Rate 20 Blood Pressure [Right Arm] 137/84 Blood Pressure Mean [Right Arm] 101 Blood Pressure Source [Right Arm] Automatic Cuff Blood Pressure Position [Right Arm] Sitting 02 Sat by Pulse Oximetry 96 Oxygen Delivery Method Room Air Lab Data Labs: Lab Results 04/16/25 00:25: WBC 9.2, RBC 3.96 L, Hgb 10.3 L, Hct 31.4 L, MCV 79.3 L, MCH 26.0 L, MCHC 32.8, RDW 15.0, Plt Count 283, MPV 10.6 H, Neut % (Auto) 58.3, Lymph % (Auto) 26.4, [place] % (Auto) 8.9, Eos % (Auto) 4.9, Baso % (Auto) 1.1, Neut # (Auto) 5.4, Lymph # (Auto) 2.4, [place] # (Auto) 0.8, Eos # (Auto) 0.5 H, Baso # (Auto) 0.1, PT 10.2, INR 0.91, Sodium 143, Potassium 4.1, Chloride 110 H, Carbon Dioxide 21 L, Anion Gap 16.1 H, BUN 14, Creatinine 1.00, Estimated Creat Clear 89, Estimated GFR 75, Est GFR ( Amer) 91, Glucose 100, Calcium 8.6, Total Bilirubin 0.5, AST 37, ALT 39, Alkaline Phosphatase 117, Troponin I < 0.01, NT-Pro-B Natriuret Pep 489 H, Total Protein 6.7, Albumin 3.8, Globulin 2.9, Albumin/Globulin Ratio 1.3 04/16/25 00:45: VBG pH 7.34, VBG pCO2 39.7, VBG pO2 79.9 H, VBG HCO3 20.9 L, VBG Total CO2 22.1 L, VBG O2 Saturation 93.4 H, VBG Base Excess -4.9 L, VBG Lactic Acid 1.7 04/16/25 00:25 04/16/25 00:25 Response Orders (Tests/Meds): ED MEDICATIONS Generic Name Dose Route Start Last Admin Trade Name Freq PRN Reason Stop Dose Admin Lactated Ringer's 500 mls @ 999 mls/hr 04/16/25 01:50 Lactated Ringer's 500ml IV 04/16/25 02:20 .Q31M ONE Nitroglycerin 0.4 mg 04/16/25 00:21 04/16/25 00:35 Nitroglycerin 0.4mg Sl Tablet SL 04/17/25 00:21 0.4 mg Q5MINP PRN Administration Chest Pain Discontinued Medications Generic Name Dose Route Start Last Admin Trade Name Freq PRN Reason Stop Dose Admin Aspirin 324 mg 04/16/25 00:21 04/16/25 00:36 Aspirin 81mg Chewable Tablet PO 04/16/25 00:22 324 mg ONCE ONE Administration Iopamidol 70 ml 04/16/25 01:30 04/16/25 01:31 Iopamidol-370 (76%);100ml Bottle IV 04/16/25 01:31 70 ml ONCE ONE Administration Sodium Chloride 50 ml 04/16/25 01:30 04/16/25 01:31 0.9 % Sodium Chloride 50 Ml Vial IV 04/16/25 01:31 50 ml ONCE ONE Administration Sodium Chloride 10 ml 04/16/25 01:30 04/16/25 01:31 Sodium Chloride 0.9% 10ml Syr (Rad Only) IV 04/16/25 01:31 10 ml ONCE ONE Administration ORDERS Category Date Time Status CT angio chest PE protocol Stat Cat Scan 04/16/25 00:21 Completed XR chest portable Stat Exams 04/16/25 00:21 Taken Complete Blood Count Auto Diff Stat Lab 04/16/25 00:25 Completed Comprehensive Metabolic Panel Stat Lab 04/16/25 00:25 Completed Ethanol [Ethyl Alcohol] Stat Lab 04/16/25 01:40 Ordered NT Pro Brain Natriuretic Pep. Stat Lab 04/16/25 00:25 Completed Prothrombin Time INR Stat Lab 04/16/25 00:25 Completed Troponin I Q3H Lab 04/16/25 03:30 Ordered Troponin I Q3H Lab 04/16/25 06:30 Ordered Troponin I Stat Lab 04/16/25 00:25 Completed Venous Blood Gas Stat RT 04/16/25 00:45 Completed MDM Narrative Medical Decision Narrative: In summary, this 64-year-old male with comorbidities described in the HPI presents to the emergency department today with left-sided chest pain radiating into the left arm in the setting of previous AK. On initial evaluation patient is hemodynamically stable, afebrile, patient reports pain has improved since the time it started, GCS 15, cardiopulmonary exam is benign, remainder of exam reassuring. Differential diagnosis includes but is not limited to ACS, PE was considered due to patient's hypercoagulable state with active cancer, also considered esophageal spasm, pneumothorax, pneumonia, electrolyte abnormality, dehydration, among others. Based on these concerns, I ordered hematologic and serum labs, cardiac workup including EKG, troponin, chest x-ray, CTA PE was ordered as well. ECG personally interpreted demonstrates normal sinus rhythm, rate 71, normal axis, normal CA and QTc, no STEMI. Patient received IV fluids, aspirin, nitro for treatment. Patient reports after receiving nitro and his pain and numbness sensation in the left arm has further improved. Labs personally reviewed demonstrate no leukocytosis, anemia with hemoglobin 10.3 nonactionable at this time. Platelets normal, PT/INR normal, VBG with normal pH, no hypercarbia, VBG lactic normal at 1.7, CMP with slight anion gap elevation potentially related to alcohol use, troponin undetectably low less than 0.01, BNP elevated at 489 with no prior comparison but patient does not appear clinically volume overloaded. Chest x-ray personally interpreted demonstrates right upper lobe mass, see radiology read for final interpretation. CTA PE does not demonstrate large segmental or subsegmental PE, right upper lobe mass is persistent. See radiology read for final interpretation. Patient is more comfortable than when he came to the ER but with his history I believe requires admission for continued cardiac monitoring, serial troponins, and cardiac evaluation. He is agreeable to this plan. I discussed this case with the hospitalist who graciously accepted the patient for admission. He was admitted in stable condition.
[2025-04-16 01:20] LABS: NT Pro Brain Natriuretic Pep. 489 pg/mL (0-125)
[2025-04-16 01:24] LABS: Troponin I < 0.01 ng/ml (0.00-0.034)
[2025-04-16] MEDS: IOPAMIDOL-370 (76%);100ML BOTTLE 70 ML IV (01:31)
[2025-04-16] MEDS: SODIUM CHLORIDE 0.9% 10ML SYR (RAD ONLY) 10 ML IV (01:31)
[2025-04-16] MEDS: 0.9 % SODIUM CHLORIDE 50 ML VIAL IV (01:31)
--- NOTE | 2025-04-16 02:10 | P.HP_ITS ---
<Statement entered by Wade Plata MD - 04/16/25 17:39> Rounded on patient after nurse practitioner. Personally examined and interviewed patient. Agree with exam findings and care plan as documented. History of Present Illness *Admission Date: 04/16/25 *Reason for visit:: Chest pain *History of present illness: This is a 64-year-old male with past medical history of CAD, tobacco use who presents emergency department today with complaints of left-sided chest pain. Patient reports cardiac history with stent placement and follows with cardiology in [place]. Also states he has a history of lung cancer and undergoes chemo treatments. Next chemo session next week. States that today he was lying in bed and developed left-sided chest pain with radiation to his left arm. Took 2 nitro's at home with some relief. Reports he came to the emergency department because his pain persisted and felt like his last heart attack. He does endorse drinking 1 case of beer today. Endorses continued smoking habits of 1 pack/day. Denies any nausea vomiting or diaphoresis associated with pain. Emergency Department workup unremarkable. EKG normal. Troponin negative. CTA chest negative. Given his elevated heart score and history of CAD it was felt he would benefit from hospitalization. He is admitted to hospital service [facility] Disclaimer: The information contained in this section may have been updated after the patient was seen, as this information can be updated by other users. Social History (Updated 12/27/24 @ 22:14 by TWAN Hernandez) Smoking Status: Current every day smoker alcohol intake: current current occupational status: unemployed Travel in the last 8 weeks?: None Have you lived/traveled outside US in past 30 days?: No Contact w/someone who lives/traveled outside US past 30 days?: No Exposure to someone with infectious disease in past 14 days?: No Do you have a fever (greater than 100.4 F or 38 C)?: No Have you tested positive for COVID-19?: No Exposed to someone with COVID-19 in past 14 days?: No Do you have a sore throat?: No Do you have a cough?: No Do you have any weakness?: No Do you have any diarrhea?: No Are you experiencing any unusual bleeding?: No Do you have any muscle aches/pain?: No Do you have any abdominal pain?: No Are you experiencing loss of taste or smell?: No Review of Systems Review of Systems Review of systems:: pertinent systems reviewed and negative unless documented below Review of systems (narrative): Negative except for HPI Meds Home Medications and Allergies New Prescriptions to Start Prescriptions: Allergies Allergy/AdvReac Type Severity Reaction Status Date / Time No Known Drug Allergies Allergy Unknown Other Verified 12/27/24 20:26 Exam Data for Last 24 hours Vital signs and Labs for Last 24 Hours: Temp Pulse Resp BP Pulse Ox O2 Del Method 98.4 F 81 13 125/78 97 Room Air 04/16/25 00:20 04/16/25 01:45 04/16/25 01:45 04/16/25 01:45 04/16/25 01:45 04/16/25 00:20 Laboratory Results - last 24 hr 04/16/25 00:25: WBC 9.2, RBC 3.96 L, Hgb 10.3 L, Hct 31.4 L, MCV 79.3 L, MCH 26.0 L, MCHC 32.8, RDW 15.0, Plt Count 283, MPV 10.6 H, Neut % (Auto) 58.3, Lymph % (Auto) 26.4, [place] % (Auto) 8.9, Eos % (Auto) 4.9, Baso % (Auto) 1.1, Neut # (Auto) 5.4, Lymph # (Auto) 2.4, [place] # (Auto) 0.8, Eos # (Auto) 0.5 H, B aso # (Auto) 0.1, PT 10.2, INR 0.91, Sodium 143, Potassium 4.1, Chloride 110 H, Carbon Dioxide 21 L, Anion Gap 16.1 H, BUN 14, Creatinine 1.00, Estimated Creat Clear 89, Estimated GFR 75, Est GFR ( Amer) 91, Glucose 100, Calcium 8.6, Total Bilirubin 0.5, AST 37, ALT 39, Alkaline Phosphatase 117, Troponin I < 0.01, NT-Pro-B Natriuret Pep 489 H, Total Protein 6.7, Albumin 3.8, Globulin 2.9, Albumin/Globulin Ratio 1.3 04/16/25 00:45: VBG pH 7.34, VBG pCO2 39.7, VBG pO2 79.9 H, VBG HCO3 20.9 L, VBG Total CO2 22.1 L, VBG O2 Saturation 93.4 H, VBG Base Excess -4.9 L, VBG Lactic Acid 1.7 I & O for Last 24 hours: Intake & Output 04/13/25 04/14/25 04/15/25 04/16/25 23:59 23:59 23:59 23:59 Weight 85.729 kg Constitutional Constitutional: no acute distress *Routine HEENT Exam Head: Present normocephalic Eye: Present EOMI and PERRL ENT: Present mucous membranes moist *Routine Neck Exam Neck: Present supple; Absent lymphadenopathy *Routine Respiratory Exam Respiratory: Present CTA bilaterally *Routine Cardiovascular Exam Cardiovascular: Present RRR *Routine Abdominal Exam Abdominal: Present soft and normoactive bowel sounds; Absent tenderness *Routine Rectal Exam Rectal:: deferred *Routine Genitalia Exam Genitalia:: deferred *Routine Extremities Exam Extremities: Absent cyanosis, clubbing or edema *Routine Skin Exam Skin: Present warm; Absent rash *Routine Neurological Exam Neurological: Present alert and oriented X3 Assessment and Plan *Assessment and plan (1) CAD (coronary artery disease), [place] coronary artery: Status: Acute Category: Medical Code(s): I25.10 - Atherosclerotic heart disease of [place] coronary artery without angina pectoris (2) Angina pectoris: Status: Acute Category: Medical Code(s): I20.9 - Angina pectoris, unspecified (3) Tobacco abuse: Status: Acute Category: Medical Code(s): Z72.0 - Tobacco use (4) Hypokalemia: Status: Acute Category: Medical Code(s): E87.6 - Hypokalemia Plan Admit to medicine #CAD #Chest pain Left-sided chest pain improved with nitro. Heart score 5. Troponin negative and EKG without ischemia today. Given ongoing pain and history of CAD, it was felt he would benefit from hospitalization. Follows with cardiology at [place]. Will consult cardiology in a.m. Continue aspirin and Plavix per home regimen Trend troponin #Tobacco abuse Tobacco cessation education Reports continues to have 1 pack/day #Hypokalemia Replace per protocol
--- NOTE | 2025-04-16 02:20 | PC.NURSE ---
Patient arrived to floor via wheelchair from ED at 02:19.
--- NOTE | 2025-04-16 02:53 | PC.NURSE ---
Addendum entered by Pilar Jaime RN 04/16/25 03:16: Completed med rec based on external list. Original Note: When ask what medications patient takes every day, he states not everyday, but heart medicine . Leaving med rec for pharmacy to confirm.
[2025-04-16] MEDS: NICOTINE 21MG/24HR PATCH 21 MG TD (03:04)
[2025-04-16 04:21] LABS: Troponin I < 0.01 ng/ml (0.00-0.034)
--- NOTE | 2025-04-16 05:05 | PC.NURSE ---
Alert and oriented. No complaints of chest pain since arriving to the floor. NSR on tele. Patient has rested well this shift. Call light in reach.
[2025-04-16 06:46] LABS: Hematocrit 29.9 % (42.0-52.0); Hemoglobin 9.5 g/dL (14.1-18.0); Immature Granulocytes % 0.4 %; Mean Corpuscular HGB Conc 31.8 g/dL (31.8-35.4); Mean Corpuscular Hemoglobin 25.1 pg (27.0-31.2); Mean Corpuscular Volume 79.1 fl (80-94); Nucleated Red Blood Cells % 0 %; Platelet Count 246 K/mm3 (142-424); Red Blood Count 3.78 M/mm3 (4.60-6.20); Red Cell Distribution Width-SD 43.7 fL; White Blood Count 7.8 K/mm3 (4.8-10.8)
[2025-04-16 07:38] LABS: Chloride 109 mmol/L (98-107); Potassium 4.4 mmoL/L (3.5-5.1); Sodium 142 mmol/L (136-145)
[2025-04-16 07:41] LABS: Anion Gap 12.4 mEq/L (5-15); Blood Urea Nitrogen 14 mg/dl (9-20); Calcium 8.5 mg/dl (8.4-10.2); Carbon Dioxide 25 mmol/L (22.0-30.0); Creatinine Clearance Estimated 91 mL/min (50-200); Creatinine,Serum 1.00 mg/dl (0.66-1.25); Estimated Glomerular Filt Rate 75 ml/min (>60); GFR (African American) 91 ML/MIN (>60); Glucose 63 mg/dl (74-100)
[2025-04-16 07:43] LABS: Troponin I < 0.01 ng/ml (0.00-0.034)
--- NOTE | 2025-04-16 09:30 | CA_ITS ---
APPROVED REPORT EXAM: Comprehensive 2D, Doppler, and color-flow Echocardiogram Medical Assistant Supervisor: Jennifer Leary RVT Ht: 6 ft 2 in Wt: 192lbs BSA: 2.14 BP: 125/78 mmHg Indications: ANGINA 2D Dimensions LA Volume 33.30 mL LA Volume Index 15.56 mL/m2 (M/F) 16-34 M-Mode Dimensions RVDd 2.46 cm (0.9-2.6) LA Diam 4.11 cm (1.9-4.0) LVDd 5.92 cm (3.5-5.7) LVDs 4.53 cm (3.5-5.7) IVSd 0.78 cm (0.6-1.1) PWd 0.80 cm (0.6-1.1) EF (Teich) 46.20% EPSs 2.85 cm FS 23.50% EDV (Teich) 174.60 mL TAPSE 2.67 (<1.7) ESV (Teich) 93.90 mL LV Diastology E Decel Time 150 (160-240 msec) E/A Ratio 0.8 Aortic Valve ENMANUEL Index 1.27 cm2/m2 AoV Peak Elder. 135.0 (50-130 cm/s) AO Peak GR. 7.30 mmHg AO Mean GR. 3.70 (<5 mmHg) AO VTI 31.9 (18-25 cm) ENMANUEL (VTI) 2.78 (2.5-4.5 cm2) Mitral Valve MV E Max Elder. 55.0 (40-130 cm/s) MV A Velocity 70.0 (40-130 cm/s) E/A Ratio 0.78 MV PHT 44.0 ms Pulmonary Valve PV Peak Velocity 71.0 (50-150 cm/s) Tricuspid Valve TR P. Velocity 277.00 cm/s RAP Estimate 8.00 mmHg RVSP 38.70 mmHg Left Ventricle The left ventricle is normal size. Left ventricular systolic function is mildly reduced. There is increased left ventricular wall thickness. There is mild global hypokinesis present. Grade 1 diastolic dysfunction. LVEF is 40-45% Right Ventricle The right ventricle is mildly dilated. The right ventricular systolic function is normal. Atria The left atrium is mildly dilated. The right atrium is mildly dilated. There is no color Doppler evidence of interatrial shunt. Aortic Valve The aortic valve is mildly thickened. There is no hemodynamically significant aortic valvular stenosis. Mild aortic regurgitation. Mitral Valve The mitral valve is normal in structure. No evidence of mitral valve stenosis. Mild mitral regurgitation is present. Tricuspid Valve The tricuspid valve leaflets are thin and pliable. Mild tricuspid regurgitation. RVSP is 30-35 mmHg. Pulmonic Valve The pulmonary valve is grossly normal in structure. Trace pulmonic valve regurgitation is present. Great Vessels The aortic root is normal in size. IVC is normal in size and collapses >50% with inspiration. Pericardium There is no pericardial effusion. Other Information Study Quality: Fair Conclusion Mildly reduced LV systolic function (LVEF 40-45%). Mild RV dilation. Mild biatrial dilation. Mild AI, mild MR, mild TR. Electronically signed by : Nora Mckinney MD 04/16/2025 13:17:23
[2025-04-16] MEDS: ASPIRIN 81MG CHEWABLE TABLET 81 MG PO (09:51)
--- NOTE | 2025-04-16 11:03 | EXP.DC.SUM ---
General Admission date:: 04/16/25 Discharge date: 04/16/25 HPI HPI HPI: This is a 64-year-old male with past medical history of CAD, tobacco use who presents emergency department today with complaints of left-sided chest pain. Patient reports cardiac history with stent placement and follows with cardiology in [place]. Also states he has a history of lung cancer and undergoes chemo treatments. Next chemo session next week. States that today he was lying in bed and developed left-sided chest pain with radiation to his left arm. Took 2 nitro's at home with some relief. Reports he came to the emergency department because his pain persisted and felt like his last heart attack. He does endorse drinking 1 case of beer today. Endorses continued smoking habits of 1 pack/day. Denies any nausea vomiting or diaphoresis associated with pain. Emergency Department workup unremarkable. EKG normal. Troponin negative. CTA chest negative. Given his elevated heart score and history of CAD it was felt he would benefit from hospitalization. He is admitted to hospital service Hospital Course Hospital Course Hospital Course: 64-year-old with history of CAD and lung cancer presents with chest pain. Admitted for cardiology eval. Serial troponins negative. After evaluation, patient was ruled out for [place]. No plan for invasive left heart cath at this time. Echo obtained. Patient had stents placed to the LAD for a year ago. Follows with cardiology in [place]. Reports since being admitted his chest pain is resolved. Stable discharge home with follow-up as an outpatient. Problems addressed as follows: #CAD #Chest pain Left-sided chest pain improved with nitro. Heart score 5. Troponin negative and EKG without ischemia today. Given ongoing pain and history of CAD, it was felt he would benefit from hospitalization and cardiology evaluation. Negative workup at this time. Recommend continuing aspirin 81 mg daily and Plavix 75 mg daily. Initiated on isosorbide mononitrate 30 mg daily for angina. Blood pressure well-controlled. Continue to hold valsartan. Discussed need for further outpatient ischemic eval with stress test once he is discharged from the hospital. Patient states he would like to have this with his primary surveillance systems engineer Dr. Carrera. Defer further management given patient's preference. -Continue Lipitor 80 mg daily. #Tobacco abuse Tobacco cessation education Reports continues to have 1 pack/day #Hypokalemia Replaced per protocol Exam Data for Last 24 hours Vital signs and Labs for Last 24 Hours: Temp Pulse Resp BP Pulse Ox O2 Del Method 98 F 70 16 132/75 98 Room Air 04/16/25 07:51 04/16/25 08:00 04/16/25 07:51 04/16/25 07:51 04/16/25 07:51 04/16/25 08:00 Laboratory Results - last 24 hr 04/16/25 00:25: WBC 9.2, RBC 3.96 L, Hgb 10.3 L, Hct 31.4 L, MCV 79.3 L, MCH 26.0 L, MCHC 32.8, RDW 15.0, Plt Count 283, MPV 10.6 H, Neut % (Auto) 58.3, Lymph % (Auto) 26.4, [place] % (Auto) 8.9, Eos % (Auto) 4.9, Baso % (Auto) 1.1, Neut # (Auto) 5.4, Lymph # (Auto) 2.4, [place] # (Auto) 0.8, Eos # (Auto) 0.5 H, Baso # (Auto) 0.1, PT 10.2, INR 0.91, Sodium 143, Potassium 4.1, Chloride 110 H, Carbon Dioxide 21 L, Anion Gap 16.1 H, BUN 14, Creatinine 1.00, Estimated Creat Clear 89, Estimated GFR 75, Est GFR ( Amer) 91, Glucose 100, Calcium 8.6, Total Bilirubin 0.5, AST 37, ALT 39, Alkaline Phosphatase 117, Troponin I < 0.01, NT-Pro-B Natriuret Pep 489 H, Total Protein 6.7, Albumin 3.8, Globulin 2.9, Albumin/Globulin Ratio 1.3, Plasma/Serum Alcohol 144 H 04/16/25 00:45: VBG pH 7.34, VBG pCO2 39.7, VBG pO2 79.9 H, VBG HCO3 20.9 L, VBG Total CO2 22.1 L, VBG O2 Saturation 93.4 H, VBG Base Excess -4.9 L, VBG Lactic Acid 1.7 04/16/25 03:53: Troponin I < 0.01 04/16/25 05:54: WBC 7.8, RBC 3.78 L, Hgb 9.5 L, Hct 29.9 L, MCV 79.1 L, MCH 25.1 L, MCHC 31.8, RDW 15.2, Plt Count 246, MPV 10.6 H, Neut % (Auto) 59.9, Lymph % (Auto) 23.7, [place] % (Auto) 10.0 H, Eos % (Auto) 5.0, Baso % (Auto) 1.0, Neut # (Auto) 4.7, Lymph # (Auto) 1.9, [place] # (Auto) 0.8, Eos # (Auto) 0.4, Baso # (Auto) 0.1, Sodium 142, Potassium 4.4, Chloride 109 H, Carbon Dioxide 25, Anion Gap 12.4, BUN 14, Creatinine 1.00, Estimated Creat Clear 91, Estimated GFR 75, Est GFR ( Amer) 91, Glucose 63 L D, Calcium 8.5, Troponin I < 0.01 I & O for Last 24 hours: Intake & Output 04/13/25 04/14/25 04/15/25 04/16/25 23:59 23:59 23:59 23:59 Output Total 0 / 0 Balance 0 / 0 Weight 87.09 kg Constitutional Constitutional: no acute distress, average body habitus and cooperative *Routine HEENT Exam Head: Present normocephalic and atraumatic Eye: Present EOMI ENT: Present mucous membranes moist *Routine Neck Exam Neck: Present supple and full ROM *Routine Respiratory Exam Respiratory: Present CTA bilaterally, normal respiratory effort, able to speak in complete sentences and symmetric chest movement *Routine Cardiovascular Exam Cardiovascular: Present RRR, Normal S1 and Normal S2; Absent murmur or gallop *Routine Abdominal Exam Abdominal: Present soft and normoactive bowel sounds; Absent tenderness, distended or organomegaly *Routine Rectal Exam Patient deferred: visual exam *Routine Exam Patient deferred: penile exam *Routine Extremities Exam Extremities: Present full ROM, pulses intact and normal capillary refill; Absent cyanosis, clubbing or edema *Routine Skin Exam Skin: Present intact and warm; Absent erythema *Routine Neurological Exam Neurological: Present alert, oriented X3 and CN II-XII intact; Absent sensory deficit or motor deficit Routine Psychiatric Exam Psychiatric: Present normal affect Results Data Completed and Pending Labs on day of discharge: Labs from last 24 hours 04/16/25 04/16/25 04/16/25 05:54 03:53 00:45 WBC 7.8 RBC 3.78 L Hgb 9.5 L Hct 29.9 L MCV 79.1 L MCH 25.1 L MCHC 31.8 RDW 15.2 Plt Count 246 MPV 10.6 H Neut % (Auto) 59.9 Lymph % (Auto) 23.7 [place] % (Auto) 10.0 H Eos % (Auto) 5.0 Baso % (Auto) 1.0 Neut # (Auto) 4.7 Lymph # (Auto) 1.9 Stephen[place] # (Auto) 0.8 Eos # (Auto) 0.4 Baso # (Auto) 0.1 PT INR VBG pH 7.34 VBG pCO2 39.7 VBG pO2 79.9 H VBG HCO3 20.9 L VBG Total CO2 22.1 L VBG O2 Saturation 93.4 H VBG Base Excess -4.9 L VBG Lactic Acid 1.7 Sodium 142 Potassium 4.4 Chloride 109 H Carbon Dioxide 25 Anion Gap 12.4 BUN 14 Creatinine 1.00 Estimated Creat Clear 91 Estimated GFR 75 Est GFR ( Amer) 91 Glucose 63 L D Calcium 8.5 Total Bilirubin AST ALT Alkaline Phosphatase Troponin I < 0.01 < 0.01 NT-Pro-B Natriuret Pep Total Protein Albumin Globulin Albumin/Globulin Ratio Plasma/Serum Alcohol 04/16/25 00:25 WBC 9.2 RBC 3.96 L Hgb 10.3 L Hct 31.4 L MCV 79.3 L MCH 26.0 L MCHC 32.8 RDW 15.0 Plt Count 283 MPV 10.6 H Neut % (Auto) 58.3 Lymph % (Auto) 26.4 Stephen[place] % (Auto) 8.9 Eos % (Auto) 4.9 Baso % (Auto) 1.1 Neut # (Auto) 5.4 Lymph # (Auto) 2.4 [place] # (Auto) 0.8 Eos # (Auto) 0.5 H Baso # (Auto) 0.1 PT 10.2 INR 0.91 VBG pH VBG pCO2 VBG pO2 VBG HCO3 VBG Total CO2 VBG O2 Saturation VBG Base Excess VBG Lactic Acid Sodium 143 Potassium 4.1 Chloride 110 H Carbon Dioxide 21 L Anion Gap 16.1 H BUN 14 Creatinine 1.00 Estimated Creat Clear 89 Estimated GFR 75 Est GFR ( Amer) 91 Glucose 100 Calcium 8.6 Total Bilirubin 0.5 AST 37 ALT 39 Alkaline Phosphatase 117 Troponin I < 0.01 NT-Pro-B Natriuret Pep 489 H Total Protein 6.7 Albumin 3.8 Globulin 2.9 Albumin/Globulin Ratio 1.3 Plasma/Serum Alcohol 144 H DS: Diagnosis Discharge Diagnosis (1) CAD (coronary artery disease), [place] coronary artery: Status: Acute Code(s): I25.10 - Atherosclerotic heart disease of [place] coronary artery without angina pectoris (2) Angina pectoris: Status: Acute Code(s): I20.9 - Angina pectoris, unspecified (3) Tobacco abuse: Status: Acute Code(s): Z72.0 - Tobacco use (4) Hypokalemia: Status: Acute Code(s): E87.6 - Hypokalemia Meds Home Medications and Allergies Home Medications ?Medication ?Instructions ?Recorded ?Confirmed ?Type albuterol sulfate 90 mcg/actuation 2 puff inhalation BID 30 days #8.5 04/16/25 Rx aerosol inhaler grams aspirin 81 mg tablet,delayed 81 mg PO DAILY 04/16/25 04/16/25 History release atorvastatin 80 mg tablet 80 mg PO DAILY 04/16/25 04/16/25 History clopidogrel 75 mg tablet 75 mg PO DAILY 04/16/25 04/16/25 History gabapentin 600 mg tablet 600 mg PO TID 04/16/25 04/16/25 History isosorbide mononitrate 30 mg 30 mg PO DAILY #30 tabs 04/16/25 Rx tablet,extended release 24 hr lidocaine-prilocaine 2.5 %-2.5 % 1 applic topical DAILY 04/16/25 04/16/25 History topical cream oxycodone 10 mg tablet 10 mg PO QID PRN Pain (Scale Score 04/16/25 04/16/25 History 4-6) pantoprazole 40 mg tablet,delayed 40 mg PO DAILY #30 tabs 04/16/25 Rx release valsartan 80 mg tablet 80 mg PO DAILY 04/16/25 04/16/25 History New Prescriptions to Start Prescriptions: albuterol sulfate Wade Plata isosorbide mononitrate Wade Plata pantoprazole Wade Plata Allergies Allergy/AdvReac Type Severity Reaction Status Date / Time No Known Drug Allergies Allergy Unknown Other Verified 12/27/24 20:26 Discharge Plan Disposition Patient Disposition: Home, Self-Care Condition: Good Follow up Plan Follow up with: Provider,Referral, [Primary Care Provider, Medical] - Enter time for follow up Referral Note: appointment with Dr. Carrera(cardiology) in [place] 05/03/25 at 3:30 Prescriptions/Medication Reconciliation: New isosorbide mononitrate 30 mg tablet extended release 24 hr 30 mg PO DAILY Qty: 30 0RF pantoprazole 40 mg tablet,delayed release (DR/EC) 40 mg PO DAILY Qty: 30 0RF Continued atorvastatin 80 mg tablet 80 mg PO DAILY gabapentin 600 mg tablet 600 mg PO TID valsartan 80 mg tablet 80 mg PO DAILY clopidogrel 75 mg tablet 75 mg PO DAILY aspirin 81 mg tablet,delayed release (DR/EC) 81 mg PO DAILY lidocaine-prilocaine 2.5-2.5 % cream 1 applic topical DAILY oxycodone 10 mg tablet 10 mg PO QID PRN (Reason: Pain (Scale Score 4-6)) albuterol sulfate 90 mcg/actuation HFA aerosol inhaler 2 puff INHALATION BID 30 Days Qty: 8.5 0RF Problem Reconciliation Problems Reviewed?: Yes Patient Discharge Instructions ACTIVITY: Continue current activity Patient Instructions: DI for Chest Pain Print Language: Gambian Providers Primary Care Provider: ProviderYajaira Admit Provider: Lamont Harper Attending Provider: Lamont Harper
--- NOTE | 2025-04-16 11:35 | EXP.CARD.CON ---
History of Present Illness History of Present Illness Consult date: 04/16/25 Requesting physician: Wade Plata Consult reason: chest pain Chief complaint: Chest pain History of present illness: This is a 64-year-old white gentleman who presented to the emergency department with complaints of chest pain. He states that he started having chest pain on the day of admission approximately an hour before he came to the emergency department. It was in the left side of his chest. He states that it was a sharp pain that radiated to his left arm. He took 2 nitroglycerin with some relief and decided to come to the emergency department. He states that this felt like the previous pain he had with his previous heart attack. He does drink 1 case of beer a day. He does smoke 1 pack of cigarettes a day. He denied any shortness of breath, nausea or diaphoresis with the chest pain. He states since being in the hospital his chest pain has resolved. He denies any fever, chills, nausea, vomiting, diarrhea, PND orthopnea. [facility] Disclaimer: The information contained in this section may have been updated after the patient was seen, as this information can be updated by other users. Medical History (Updated 04/16/25 @ 11:37 by Grecia Brady APRN) Alcohol intoxication Angina pectoris CAD (coronary artery disease), [place] coronary artery Tobacco abuse Hyperlipidemia Hypertension Asthma History of heart attack Lung cancer Surgical History (Updated 04/16/25 @ 02:59 by Pilar Jaime RN) H/O heart artery stent Social History (Updated 04/16/25 @ 02:59 by Pilar Jaime RN) Smoking Status: Current every day smoker alcohol intake: current current occupational status: unemployed Travel in the last 8 weeks?: None Have you lived/traveled outside US in past 30 days?: No Contact w/someone who lives/traveled outside US past 30 days?: No Exposure to someone with infectious disease in past 14 days?: No Do you have a fever (greater than 100.4 F or 38 C)?: No Have you tested positive for COVID-19?: No Exposed to someone with COVID-19 in past 14 days?: No Do you have a sore throat?: No Do you have a cough?: No Do you have any weakness?: No Are you experiencing any nausea/vomitting?: No Do you have any diarrhea?: No Are you experiencing any unusual bleeding?: No Do you have any muscle aches/pain?: No Do you have any abdominal pain?: No Are you experiencing loss of taste or smell?: No Review of Systems Review of Systems Review of systems:: pertinent systems reviewed and negative unless documented below Constitutional Constitutional: Reports system reviewed and no additional complaints, except as documented Eyes Eyes: Reports system reviewed and no additional complaints, except as documented ENT Ears, Nose, Mouth, and Throat: Reports system reviewed and no additional complaints, except as documented *Cardiovascular Cardiovascular: Reports system reviewed and no additional complaints, except as documented, Reports chest pain, Reports chest pain at rest and Reports chest pain with activity *Respiratory Respiratory: Reports system reviewed and no additional complaints, except as documented *Gastrointestinal Gastrointestinal: Reports system reviewed and no additional complaints, except as documented *Genitourinary Genitourinary: Reports system reviewed and no additional complaints, except as documented *Musculoskeletal Musculoskeletal: Reports system reviewed and no additional complaints, except as documented Integumentary/Breasts Skin/Breast: Reports system reviewed and no additional complaints, except as documented *Neurologic Neurologic: Reports system reviewed and no additional complaints, except as documented Psychiatric Psychiatric: Reports system reviewed and no additional complaints, except as documented Endocrine Endocrine: Reports system reviewed and no additional complaints, except as documented Hematologic/Lymphatic Hematologic/Lymphatic: Reports system reviewed and no additional complaints, except as documented Allergic/Immunologic Allergic/Immunologic: Reports system reviewed and no additional complaints, except as documented Exam Data for Last 24 hours Vital signs and Labs for Last 24 Hours: Temp Pulse Resp BP Pulse Ox O2 Del Method 98 F 70 16 132/75 98 Room Air 04/16/25 07:51 04/16/25 08:00 04/16/25 07:51 04/16/25 07:51 04/16/25 07:51 04/16/25 11:00 Laboratory Results - last 24 hr 04/16/25 00:25: WBC 9.2, RBC 3.96 L, Hgb 10.3 L, Hct 31.4 L, MCV 79.3 L, MCH 26.0 L, MCHC 32.8, RDW 15.0, Plt Count 283, MPV 10.6 H, Neut % (Auto) 58.3, Lymph % (Auto) 26.4, [place] % (Auto) 8.9, Eos % (Auto) 4.9, Baso % (Auto) 1.1, Neut # (Auto) 5.4, Lymph # (Auto) 2.4, [place] # (Auto) 0.8, Eos # (Auto) 0.5 H, Baso # (Auto) 0.1, PT 10.2, INR 0.91, Sodium 143, Potassium 4.1, Chloride 110 H, Carbon Dioxide 21 L, Anion Gap 16.1 H, BUN 14, Creatinine 1.00, Estimated Creat Clear 89, Estimated GFR 75, Est GFR ( Amer) 91, Glucose 100, Calcium 8.6, Total Bilirubin 0.5, AST 37, ALT 39, Alkaline Phosphatase 117, Troponin I < 0.01, NT-Pro-B Natriuret Pep 489 H, Total Protein 6.7, Albumin 3.8, Globulin 2.9, Albumin/Globulin Ratio 1.3, Plasma/Serum Alcohol 144 H 04/16/25 00:45: VBG pH 7.34, VBG pCO2 39.7, VBG pO2 79.9 H, VBG HCO3 20.9 L, VBG Total CO2 22.1 L, VBG O2 Saturation 93.4 H, VBG Base Excess -4.9 L, VBG Lactic Acid 1.7 04/16/25 03:53: Troponin I < 0.01 04/16/25 05:54: WBC 7.8, RBC 3.78 L, Hgb 9.5 L, Hct 29.9 L, MCV 79.1 L, MCH 25.1 L, MCHC 31.8, RDW 15.2, Plt Count 246, MPV 10.6 H, Neut % (Auto) 59.9, Lymph % (Auto) 23.7, [place] % (Auto) 10.0 H, Eos % (Auto) 5.0, Baso % (Auto) 1.0, Neut # (Auto) 4.7, Lymph # (Auto) 1.9, [place] # (Auto) 0.8, Eos # (Auto) 0.4, Baso # (Auto) 0.1, Sodium 142, Potassium 4.4, Chloride 109 H, Carbon Dioxide 25, Anion Gap 12.4, BUN 14, Creatinine 1.00, Estimated Creat Clear 91, Estimated GFR 75, Est GFR ( Amer) 91, Glucose 63 L D, Calcium 8.5, Troponin I < 0.01 I & O for Last 24 hours: Intake & Output 04/13/25 04/14/25 04/15/25 04/16/25 23:59 23:59 23:59 23:59 Output Total 0 / 0 Balance 0 / 0 Weight 192 lb Constitutional Constitutional: no acute distress and average body habitus *Routine HEENT Exam Head: Present normocephalic and atraumatic ENT: Present mucous membranes moist *Routine Neck Exam Neck: Present supple, full ROM and normal carotid upstroke; Absent JVD, carotid bruit or lymphadenopathy *Routine Respiratory Exam Respiratory: Present CTA bilaterally, normal respiratory effort, able to speak in complete sentences and symmetric chest movement *Routine Cardiovascular Exam Cardiovascular: Present RRR, Normal S1 and Normal S2; Absent murmur or gallop *Routine Abdominal Exam Abdominal: Present soft and normoactive bowel sounds; Absent tenderness, distended or organomegaly *Routine Extremities Exam Extremities: Present full ROM, pulses intact and normal capillary refill; Absent cyanosis, clubbing or edema *Routine Skin Exam Skin: Present intact and warm; Absent erythema *Routine Neurological Exam Neurological: Present alert, oriented X3 and CN II-XII intact; Absent sensory deficit or motor deficit Routine Psychiatric Exam Psychiatric: Present normal affect Meds Home Medications and Allergies Home Medications ?Medication ?Instructions ?Recorded ?Confirmed ?Type albuterol sulfate 90 mcg/actuation 2 puff inhalation BID 30 days #8.5 04/16/25 Rx aerosol inhaler grams aspirin 81 mg tablet,delayed 81 mg PO DAILY 04/16/25 04/16/25 History release atorvastatin 80 mg tablet 80 mg PO DAILY 04/16/25 04/16/25 History clopidogrel 75 mg tablet 75 mg PO DAILY 04/16/25 04/16/25 History gabapentin 600 mg tablet 600 mg PO TID 04/16/25 04/16/25 History isosorbide mononitrate 30 mg 30 mg PO DAILY #30 tabs 04/16/25 Rx tablet,extended release 24 hr lidocaine-prilocaine 2.5 %-2.5 % 1 applic topical DAILY 04/16/25 04/16/25 History topical cream oxycodone 10 mg tablet 10 mg PO QID PRN Pain (Scale Score 04/16/25 04/16/25 History 4-6) pantoprazole 40 mg tablet,delayed 40 mg PO DAILY #30 tabs 04/16/25 Rx release valsartan 80 mg tablet 80 mg PO DAILY 04/16/25 04/16/25 History New Prescriptions to Start Prescriptions: albuterol sulfate Boni,Wade isosorbide mononitrate Boni,Wade pantoprazole Boni,Wade Allergies Allergy/AdvReac Type Severity Reaction Status Date / Time No Known Drug Allergies Allergy Unknown Other Verified 12/27/24 20:26 Assessment and Plan *Assessment and plan (1) Angina pectoris: Status: Acute Category: Medical Code(s): I20.9 - Angina pectoris, unspecified (2) CAD (coronary artery disease), [place] coronary artery: Status: Acute Qualifiers: Associated angina: without angina [place] vs. transplanted heart: [place] heart Qualified Code(s): I25.10 - Atherosclerotic heart disease of [place] coronary artery without angina pectoris Category: Medical Code(s): I25.10 - Atherosclerotic heart disease of [place] coronary artery without angina pectoris (3) Hypertension: Status: Acute Qualifiers: Hypertension type: primary hypertension Qualified Code(s): I10 - Essential (primary) hypertension Category: Medical Code(s): I10 - Essential (primary) hypertension (4) Hyperlipidemia: Status: Acute Qualifiers: Hyperlipidemia type: mixed hyperlipidemia Qualified Code(s): E78.2 - Mixed hyperlipidemia Category: Medical Code(s): E78.5 - Hyperlipidemia, unspecified (5) Alcohol intoxication: Status: Acute Qualifiers: Complication of substance-induced condition: uncomplicated Qualified Code(s): F10.920 - Alcohol use, unspecified with intoxication, uncomplicated Category: Medical Code(s): F10.929 - Alcohol use, unspecified with intoxication, unspecified (6) Lung cancer: Status: Acute Qualifiers: Laterality: unspecified laterality Lung location: unspecified part of lung Qualified Code(s): C34.90 - Malignant neoplasm of unspecified part of unspecified bronchus or lung Category: Medical Code(s): C34.90 - Malignant neoplasm of unspecified part of unspecified bronchus or lung Plan Plan: 1. The patient was admitted to the hospital with chest pain. He ruled out for an [place]. No plans for invasive left cardiac catheterization at this time. 2. Echocardiogram is currently pending. 3. The patient does have a history of coronary artery disease. He had stents a little under a year ago. He sees a personal trainer in [place], Dr. Carrera. He states that since being in the hospital his chest pain has resolved. Will continue aspirin and Plavix. 4. Add isosorbide mononitrate 30 mg daily for angina. 5. The patient would benefit from an outpatient ischemic evaluation with a stress test once he is discharged from the hospital. He would like to have this with his primary personal trainer Dr. Carrera. 6. His blood pressure is well-controlled. Continue valsartan. 7. His LDL goal is less than 55. He is on a statin. Will get a lipid panel. 8. He would benefit from being on a PPI due to his blood thinners and alcohol use. Recommend Protonix 40 mg daily. 9. No further recommendations at this time. The patient can be discharged home today from a cardiac standpoint with follow-up with his primary personal trainer in 1 week. Thank you for the opportunity to help participate in the care of this patient. All recommendations and orders are per Dr. Mckinney.
--- NOTE | 2025-04-16 11:57 | HMH.PHAINT1 ---
Pharmacy Intervention Comments: DISCUSSED D/C MEDS WITH PATIENT. DISCUSSED PANTOPRAZOLE AND ALBUTEROL WITH MD.
[2025-04-16 12:05] LABS: Cholesterol 145 mg/dl (140-200); HDL Cholesterol 50 mg/dl (40-60); Triglycerides 113 mg/dl (30-150)
[2025-04-16] MEDS: PANTOPRAZOLE 40MG TABLET 40 MG PO (13:09)
--- NOTE | 2025-04-18 10:24 | SW/DCPLANNER ---
Phoned patient x2. The number is the wrong and the other contact has been changed or no longer in service. Maddi SOLITARIO Religious Studies Professor
== END 2025-04-16 13:18 | disposition home or self-care (01) ==
LOC: ER 01:55 → 2ND 01:57
PROVIDERS: Nurse Practitioner Acute Care; Nurse Practitioner Family; Admitting Provider Student in an Organized Health Care Education/Training Program; Emergency Provider Emergency Medicine; Visit Provider Student in an Organized Health Care Education/Training Program
DX: I25.119 Atherosclerotic heart disease of native coronary artery with unspecified angina pectoris (principal); E87.6 Hypokalemia; I10 Essential (primary) hypertension; E78.2 Mixed hyperlipidemia; F10.920 Alcohol use, unspecified with intoxication, uncomplicated; C34.11 Malignant neoplasm of upper lobe, right bronchus or lung; C77.1 Secondary and unspecified malignant neoplasm of intrathoracic lymph nodes; F17.210 Nicotine dependence, cigarettes, uncomplicated; I25.2 Old myocardial infarction; Z95.5 Presence of coronary angioplasty implant and graft; I25.10 Atherosclerotic heart disease of native coronary artery without angina pectoris; J45.909 Unspecified asthma, uncomplicated; Z56.0 Unemployment, unspecified; Z79.899 Other long term (current) drug therapy; Z79.82 Long term (current) use of aspirin; Z79.02 Long term (current) use of antithrombotics/antiplatelets; I35.1 Nonrheumatic aortic (valve) insufficiency; I34.0 Nonrheumatic mitral (valve) insufficiency; I07.1 Rheumatic tricuspid insufficiency
CPT/HCPCS: 36415; 71045; 71275; 80048; 80053; 80061; 80320; 82803; 83880; 84484; 85025; 85610; 93005; 93306; 99285; G0378; Q9967

== ENCOUNTER 2025-06-12 11:37 | Outpatient (CLI) | payer MEDICARE, MEDICAID, SELFPAY ==
--- NOTE | 2025-06-12 | CA_ITS ---
APPROVED REPORT Exam: Pharmacologic Technologist: Amalia Wagner Stress Nurse: Kaitlin MEYERS, RN Ht: 6 ft 1 in Wt: 194 lbs BSA: 2.12 m2 HR: 60 bpm BP: 152/81 mmHg Indications: Coronary artery disease, Chest pain, Fatigue Stress Test Details Test: Lexiscan HR Resting HR: 60 bpm Max Heart Rate (APMHR): 155.053837 bpm Max HR Achieved: 84 bpm Target HR (85% APMHR): 131.033434 bpm % of APMHR: 54.19 Recovery HR: 68 bpm BP Resting BP: 152.0/81.0 mmHg Max BP: 157.0/82.0 mmHg Recovery BP: 154.0/84.0 mmHg ECG Resting ECG: Sinus Rhythm Stress ECG Conclusion Lungs clear to auscultation prior to test start. Symptoms: None Arrhythmias/Ectopy: PVC ST-T Changes: Less than 0.[address] segment changes. Electronically signed by : Nora Mckinney MD 06/18/2025 13:20:31
--- NOTE | 2025-06-12 12:30 | NM_ITS ---
APPROVED REPORT Exam: Nuclear Stress Test Indication: Chest pain, SOB, Fatigue, CAD, Hx of NE, HTN, High cholesterol, Tobacco use Patient Location: Outpatient Stress Tech: Amalia Wagner [place] Tech:Tanya Harp, ARRT, RT (R)(N) Ht: 6 ft 2 in Wt: 194 lbs HR: 58 bpm BP: 152/81 mmHg BSA: 2.15 m2 TID: 1.12 BMI: 24.9 History: Chest pain, SOB, Fatigue, CAD, Hx of NE, HTN, High cholesterol, Tobacco use Procedure: Patient received 0.4 mg of intravenous Lexiscan, resting heart rate 58 bpm, resting blood pressure 152/81 mmHg, with Lexiscan maximum heart rate achieved was 84 bpm which is % of the maximum predicted heart rate and blood pressure was 157/82 mmHg. With Lexiscan, patient denied any complaint of chest pain. Cardiac Stress and Resting SPECT Images: Cardiac Stress and Resting SPECT images were obtained using technetium 99m Myoview 32.8 mCi stress and 10.32 mCi at rest. Resting and stress imaging in supine and prone positions demonstrate a small sized, moderate, fixed perfusion defect in the basal inferior LV wall. Gated imaging demonstrates mild reduction global LV systolic function. LVEF is calculated at 48%. Conclusion: Small sized, moderate, fixed perfusion defect in the basal inferior LV wall. No evidence of reversible ischemia. Gated imaging demonstrates mild reduction global LV systolic function. LVEF is calculated at 48%. Correlation with new or recent TTE is suggested. Electronically signed by : Nora Mckinney MD 06/13/2025 13:57:47
[2025-06-12 13:00] VITALS: BP 152/81; PULSE 60; RESP 16
[2025-06-12] MEDS: ISOTOPE MYOVIEW (PER STUDY) 1 DOSE IV (13:19)
[2025-06-12] MEDS: SODIUM CHLORIDE 0.9% 10ML SYR (RAD ONLY) 10 ML IV ×2 (13:19)
== END 2025-06-12 23:59 | disposition home or self-care (01) ==
LOC: RAD 11:38
PROVIDERS: Visit Provider Internal Medicine
DX: I49.3 Ventricular premature depolarization (principal); I25.10 Atherosclerotic heart disease of native coronary artery without angina pectoris; I10 Essential (primary) hypertension; E78.00 Pure hypercholesterolemia, unspecified; R94.39 Abnormal result of other cardiovascular function study; Z72.0 Tobacco use
CPT/HCPCS: 78452; 93017; 93018; A9502; J2785